=== PATIENT | female | born 1945 | race Caucasian/White ===

== ENCOUNTER 2016-04-08 23:10 | Emergency (ER) | payer MEDICARE, MEDICAID ==
[~2016-04-08] VITALS: Ht 154.9 cm; Wt 71.0 kg
[~2016-04-08 23:10] MED LIST: CEPH500 PO; METF1000 PO; METF500 PO; NOVOLOGP2 SQ; blood pressure med PO
[2016-04-08 23:20] VITALS: BP 147/90; PULSE 110; RESP 18; TEMP 98.3; O2SAT 96
[2016-04-08] MEDS ORDERED: SODIUM CHLOR 0.9% 1000 ML INJ 1,000 ML IV ONE (23:32)
[2016-04-08] MEDS ORDERED: METF500T PO (23:45)
[2016-04-08] MEDS ORDERED: CEPH-460 PO (23:45)
[2016-04-08] MEDS ORDERED: SODIUM CHLORIDE 0.9% FLUSH 5 ML FLUSH IVF PRN (23:45)
[2016-04-08 23:49] LABS: AUTOMATED NEUTROPHIL # 5.2 TH/MM3 (1.8-7.7); BASOPHIL # 0.1 TH/MM3 (0-0.2); BASOPHIL % 1.6 % (0.0-2.0); EOSINOPHIL # 0.1 TH/MM3 (0-0.4); EOSINOPHIL % 1.3 % (0.0-4.0); HEMATOCRIT 46.2 % (35.0-46.0); LYMPH % 32.7 % (9.0-44.0); LYMPHOCYTE # 2.8 TH/MM3 (1.0-4.8); MEAN CELL VOLUME 89.6 FL (80.0-100.0); MEAN CORPUSCULAR HEMOGLOBIN 29.1 PG (27.0-34.0); MEAN CORPUSCULAR HGB CONC 32.5 % (32.0-36.0); MONO % 5.1 % (0.0-8.0); NEUT % 59.3 % (16.0-70.0); PLATELET COUNT 144 TH/MM3 (150-450); RED BLOOD COUNT 5.15 MIL/MM3 (4.00-5.30); RED CELL DISTRIBUTION WIDTH 12.1 % (11.6-17.2); WHITE BLOOD COUNT 8.6 TH/MM3 (4.0-11.0)
[2016-04-08 23:52] LABS: HEMO FLAGS DIFF FINAL
[2016-04-08 23:57] LABS: CHLORIDE 93 MEQ/L (98-107); POTASSIUM 3.9 MEQ/L (3.5-5.1); SODIUM (NA) 131 MEQ/L (136-145)
[2016-04-09] LABS: ANION GAP 12 MEQ/L (5-15); BICARBONATE 25.9 MEQ/L (21.0-32.0)
[2016-04-09] MEDS ORDERED: INSULIN HUMAN REGULAR 1,000 UNITS/10 ML VIAL IV PUSH ONE
[2016-04-09] MEDS ORDERED: SODIUM CHLOR 0.9% 1000 ML INJ 1,000 ML IV ONE (00:02)
[2016-04-09 00:09] LABS: ALKALINE PHOSPHATASE 99 U/L (45-117); ALT (GPT) 86 U/L (10-53); AST (GOT) 40 U/L (15-37); BLOOD UREA NITROGEN 20 MG/DL (7-18); GLOMERULAR FILTRATION RATE 37 ML/MIN (>89); TOTAL BILIRUBIN ADULT 0.4 MG/DL (0.2-1.0)
--- NOTE | 2016-04-09 00:16 | PD ---
HPI Chief Complaint: Dizziness Time Seen by Provider: 23:14 Travel History International Travel<30 days: No Contact w/Intl Traveler<30days: No Traveled to known affect area: No History of Present Illness HPI 70-year-old female arrives to the ER with complaint of resolved blurred vision and a sense of lightheadedness. Patient states her blood glucose at home was 450. The symptoms began after she ate a jar of tidwell pie filling. Pt recently moved to the area and re-established PMD follow up within the past few days. She restarted metformin however had been off of it for several weeks. No falls, LOC, no CP, no weakness, or change in mentation. PFSH Past Medical History Anxiety: Yes Depression: Yes Diabetes: Yes GERD: Yes Hepatitis: Yes (states have A,B,C ?) Hypertension: Yes Respiratory: Yes (hx of asthma) ?: Not Menopausal: Yes Past Surgical History Tonsillectomy: Yes Other Surgery: Yes (states "had a whole in the lung") Social History Alcohol Use: No (states she quit) Tobacco Use: No (states she quit 2 year ago - smoked 1 ppd for 5 yrs) Substance Use: No Allergies-Medications (Allergen,Severity, Reaction): Coded Allergies: No Known Allergies (Unverified , 12/04/14) Reported Meds & Prescriptions Reported Meds & Active Scripts Active Reported Keflex (Cephalexin) 500 Mg Cap 500 Mg PO Q8H Metformin (Metformin HCl) 500 Mg Tab 500 Mg PO TIDPC With meals Review of Systems Except as stated in HPI: all other systems reviewed are Neg Physical Exam Narrative GENERAL: 70-year-old female pleasant no acute distress SKIN: Warm and dry. HEAD: Atraumatic. Normocephalic. EYES: Pupils equal and round. No scleral icterus. No injection or drainage. ENT: No nasal bleeding or discharge. Mucous membranes pink and moist. NECK: Trachea midline. No JVD. CARDIOVASCULAR: Regular rate and rhythm. No murmur appreciated. RESPIRATORY: No accessory muscle use. Clear to auscultation. Breath sounds equal bilaterally. GASTROINTESTINAL: Abdomen soft, non-tender, nondistended. Hepatic and splenic margins not palpable. MUSCULOSKELETAL: No obvious deformities. No clubbing. No cyanosis. No edema. NEUROLOGICAL: Cranial nerves III through XII are normal. Speech memory mentation are normal. Motor function is normal throughout. No focal deficit/ weakness is appreciable. PSYCHIATRIC: Appropriate mood and affect; insight and judgment normal. Data Data Last Documented VS Vital Signs Date Time Temp Pulse Resp B/P Pulse Ox O2 Delivery O2 Flow Rate FiO2 04/09/16 02:31 78 16 105/53 96 Room Air 04/08/16 23:20 98.3 VS reviewed Orders Complete Blood Count With Diff (04/08/16 23:32) Comprehensive Metabolic Panel (04/08/16 23:32) Urinalysis - C+S If Indicated (04/08/16 23:32) Blood Glucose (04/08/16 23:32) Ecg Monitoring (04/08/16 23:32) Iv Access Insert/Monitor (04/08/16 23:32) Oximetry (04/08/16 23:32) NPO (04/08/16 23:32) Sodium Chlor 0.9% 1000 Ml Inj (Ns 1000 M (04/08/16 23:32) Sodium Chlor 0.9% 1000 Ml Inj (Ns 1000 M (04/09/16 00:02) Sodium Chloride 0.9% Flush (Ns Flush) (04/08/16 23:45) Ct Brain W/O Iv Contrast(Rout) (04/08/16 23:32) Insulin Human Regular Inj (Novolin R Inj (04/09/16 00:00) Blood Glucose (04/09/16 00:16) Blood Glucose (04/09/16 01:16) Labs Laboratory Tests Test 04/08/16 04/09/16 23:40 01:25 White Blood Count 8.6 TH/MM3 Red Blood Count 5.15 MIL/MM3 Hemoglobin 15.0 GM/DL Hematocrit 46.2 % Mean Corpuscular Volume 89.6 FL Mean Corpuscular Hemoglobin 29.1 PG Mean Corpuscular Hemoglobin 32.5 % Concent Red Cell Distribution Width 12.1 % Platelet Count 144 TH/MM3 Mean Platelet Volume 9.0 FL Neutrophils (%) (Auto) 59.3 % Lymphocytes (%) (Auto) 32.7 % Monocytes (%) (Auto) 5.1 % Eosinophils (%) (Auto) 1.3 % Basophils (%) (Auto) 1.6 % Neutrophils # (Auto) 5.2 TH/MM3 Lymphocytes # (Auto) 2.8 TH/MM3 Monocytes # (Auto) 0.4 TH/MM3 Eosinophils # (Auto) 0.1 TH/MM3 Basophils # (Auto) 0.1 TH/MM3 CBC Comment DIFF FINAL Differential Comment Sodium Level 131 MEQ/L Potassium Level 3.9 MEQ/L Chloride Level 93 MEQ/L Carbon Dioxide Level 25.9 MEQ/L Anion Gap 12 MEQ/L Blood Urea Nitrogen 20 MG/DL Creatinine 1.40 MG/DL Estimat Glomerular Filtration 37 ML/MIN Rate Random Glucose 465 MG/DL Calcium Level 9.7 MG/DL Total Bilirubin 0.4 MG/DL Aspartate Amino Transf 40 U/L (AST/SGOT) Alanine Aminotransferase 86 U/L (ALT/SGPT) Alkaline Phosphatase 99 U/L Total Protein 8.1 GM/DL Albumin 3.8 GM/DL Urine Color YELLOW Urine Turbidity CLEAR Urine pH 5.5 Urine Specific [place] 1.027 Urine Protein NEG mg/dL Urine Glucose (UA) 1000 OR GREATER mg/dL Urine Ketones TRACE mg/dL Urine Occult Blood NEG Urine Nitrite NEG Urine Bilirubin NEG Urine Leukocyte Esterase NEG Urine RBC 0-2 /hpf Urine WBC 0-2 /hpf Urine Squamous Epithelial 0-5 /hpf Cells Urine Bacteria NONE /hpf Microscopic Urinalysis Comment CULT NOT INDICATED MDM Medical Decision Making Medical Screen Exam Complete: Yes Emergency Medical Condition: Yes Medical Record Reviewed: Yes Differential Diagnosis Hyperglycemia, electrolyte imbalance, DKA, dehydration, arrhythmia, acute intracranial lesion Narrative Course CBC & BMP Diagram 04/08/16 23:40 AST 40 ALT 86 Patient reports feeling much better after IV fluids and insulin. No evidence of metabolic acidosis. Blood glucose improved to 319 after 1.5L and 10 units insulin. Pt agrees to follow up with PMD, Dr Romeo, in the next few days to adjust DM medications. She is ready for discharge. Dietary discretion discussed. Return precautions discussed. Diagnosis Primary Impression: Hyperglycemia Additional Impression: Vision changes Referrals: DR ROMEO 2 days Additional Instructions: You have a choice when it comes to health care, and we are glad that you chose [facility]. Hopefully, we have met your expectations on today's visit. You are welcome to return to [facility] at any time, as we are committed to meeting the health care needs of our community. Med/Other Pt SpecificInfo: Prescription(s) given Disposition: DISCHARGE HOME Condition: Stable Pavan Butt MD Apr 09, 2016 00:16 Pavan Butt MD Apr 09, 2016 00:16
[2016-04-09 00:31] VITALS: BP 127/64; PULSE 78; RESP 16; O2SAT 95
--- NOTE | 2016-04-09 00:33 | RADHPO ---
EXAM DATE/TIME: 04/09/2016 00:03 [facility] COMPARISON: No previous studies available for comparison. INDICATIONS : Dizziness. Numbness in lips and extremities. Blurred vision. RADIATION DOSE: 60.55 CTDIvol (mGy) MEDICAL HISTORY : Diabetes mellitus type 2. Hypertension. SURGICAL HISTORY : None. ENCOUNTER: Initial ACUITY: 1 day PAIN SCALE: 0/10 LOCATION: cranial TECHNIQUE: Multiple contiguous axial images were obtained of the head. Using automated exposure control and adj ustment of the mA and/or kV according to patient size, radiation dose was kept as low as reasonably a chievable to obtain optimal diagnostic quality images. FINDINGS: Noncontrast axial head CT demonstrates the ventricles to be normal in size and configuration with a n ormal sulcal pattern. No acute intracranial hemorrhage, acute cortical infarction, mass or midline sh ift is seen. Posterior fossa structures are unremarkable. Bone windows are unremarkable. There is mucosal disease involving the mastoid air cells bilaterally. CONCLUSION: 1. No evidence of acute intracranial pathology. No masses are identified. 2. 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 This report was verified electronically.
[2016-04-09 01:40] LABS: BLOOD, URINE NEG (NEG); KETONE, URINE TRACE mg/dL (NEG); NITRITE,URINE NEG (NEG); PH, URINE 5.5 (5.0-8.5)
[2016-04-09 01:45] LABS: COMMENT (UR) CULT NOT INDICATED; CULTURE IF INDICATED CULT NOT INDICATED; GLUCOSE,URINE 1000 OR GREATER mg/dL (NEG); RBC, URINE 0-2 /hpf (0-3); SQUAMOUS EPITHELIAL CELL URINE 0-5 /hpf (0-5); URINE COLOR YELLOW (YELLW/STRAW); WBC, URINE 0-2 /hpf (0-5)
[2016-04-09 02:31] VITALS: BP 105/53; PULSE 78; RESP 16; O2SAT 96
== END 2016-04-09 03:20 | disposition home or self-care (01) ==
LOC: PHED 23:10
DX: R73.9 Hyperglycemia, unspecified (principal); I10 Essential (primary) hypertension
CPT/HCPCS: 70450; 80053; 81001; 85025; 96361; 96374; 99285; J1815; J7030

== ENCOUNTER 2016-08-09 02:02 | Emergency (ER) | payer MEDICARE, MEDICAID ==
[~2016-08-09] VITALS: Ht 154.9 cm; Wt 71.0 kg
[~2016-08-09 02:02] MED LIST changes: +CEPH-460 PO; -CEPH500 PO; -METF1000 PO; -METF500 PO; +METF500T PO; -NOVOLOGP2 SQ; -blood pressure med PO
[2016-08-09 02:25] VITALS: BP 155/73; PULSE 94; RESP 18; TEMP 97.8; O2SAT 97
[2016-08-09] MEDS ORDERED: GLIP5TAB8 PO (02:47)
[2016-08-09] MEDS ORDERED: INSU1INJ5 SQ (02:47)
[2016-08-09] MEDS ORDERED: ZOCO40TA PO (02:47)
[2016-08-09] MEDS ORDERED: GEMF600T PO (02:47)
[2016-08-09 03:10] VITALS: BP 162/72; PULSE 91; RESP 18; O2SAT 96
[2016-08-09 03:15] LABS: BLOOD, URINE NEG (NEG); GLUCOSE,URINE 100 mg/dL (NEG); KETONE, URINE NEG (NEG); NITRITE,URINE NEG (NEG); PH, URINE 5.5 (5.0-8.5)
[2016-08-09 03:26] LABS: URINE COLOR STRAW (YELLW/STRAW)
[2016-08-09 03:27] LABS: BACTERIA, URINE MOD /hpf; COMMENT (UR) CULTURE INDICATED; CULTURE IF INDICATED CULTURE INDICATED; SQUAMOUS EPITHELIAL CELL URINE 0-5 /hpf (0-5); WBC, URINE 15-19 /hpf (0-5)
[2016-08-09 03:40] LABS: CHLORIDE 98 MEQ/L (98-107); POTASSIUM 3.8 MEQ/L (3.5-5.1); SODIUM (NA) 135 MEQ/L (136-145)
[2016-08-09 03:43] LABS: ANION GAP 10 MEQ/L (5-15); BICARBONATE 26.9 MEQ/L (21.0-32.0)
[2016-08-09 03:44] LABS: BLOOD UREA NITROGEN 20 MG/DL (7-18)
[2016-08-09 03:46] LABS: ALT (GPT) 109 U/L (10-53); AST (GOT) 58 U/L (15-37)
[2016-08-09 03:47] LABS: GLOMERULAR FILTRATION RATE 56 ML/MIN (>89)
[2016-08-09 03:48] LABS: TOTAL BILIRUBIN ADULT 0.4 MG/DL (0.2-1.0)
[2016-08-09 03:49] LABS: ALKALINE PHOSPHATASE 80 U/L (45-117)
[2016-08-09 03:56] LABS: AUTOMATED NEUTROPHIL # 3.9 TH/MM3 (1.8-7.7); BASOPHIL % 0.3 % (0.0-2.0); EOSINOPHIL # 0.2 TH/MM3 (0-0.4); EOSINOPHIL % 2.3 % (0.0-4.0); HEMATOCRIT 38.9 % (35.0-46.0); LYMPH % 41.8 % (9.0-44.0); LYMPHOCYTE # 3.4 TH/MM3 (1.0-4.8); MEAN CELL VOLUME 89.2 FL (80.0-100.0); MEAN CORPUSCULAR HEMOGLOBIN 30.4 PG (27.0-34.0); MEAN CORPUSCULAR HGB CONC 34.1 % (32.0-36.0); MONO % 7.5 % (0.0-8.0); NEUT % 48.1 % (16.0-70.0); PLATELET COUNT 137 TH/MM3 (150-450); RED BLOOD COUNT 4.36 MIL/MM3 (4.00-5.30); RED CELL DISTRIBUTION WIDTH 12.2 % (11.6-17.2); WHITE BLOOD COUNT 8.1 TH/MM3 (4.0-11.0)
[2016-08-09 03:58] LABS: HEMO FLAGS DIFF FINAL
[2016-08-09] MEDS ORDERED: MACR100C2 PO (04:20)
--- NOTE | 2016-08-09 04:22 | PD ---
HPI Chief Complaint: Numbness/Tingling Time Seen by Provider: 02:53 Travel History International Travel<30 days: No Contact w/Intl Traveler<30days: No Traveled to known affect area: No History of Present Illness HPI The patient is a 70-year-old female that complains of numbness, tingling to both of her arms or legs and lips bilaterally. She is been under a lot of stress at home. She states she gets short of breath when she gets under stress. She also has dysuria, frequency and urgency but no nausea, vomiting or diarrhea or flank pain. She denies any focal neurologic change. He denies any headache. PFSH Past Medical History Anxiety: Yes Depression: Yes Diabetes: Yes Patient Takes Glucophage: Yes GERD: Yes Hepatitis: Yes (states have A,B,C ?) Hypertension: Yes Respiratory: Yes (hx of asthma) Tetanus Vaccination: < 5 Years Influenza Vaccination: No ?: Not Menopausal: Yes Past Surgical History Tonsillectomy: Yes Other Surgery: Yes (states "had a whole in the lung") Social History Alcohol Use: No (states she quit) Tobacco Use: No (states she quit 2 year ago - smoked 1 ppd for 5 yrs) Substance Use: No Allergies-Medications (Allergen,Severity, Reaction): Coded Allergies: No Known Allergies (Unverified , 08/09/16) Reported Meds & Prescriptions Reported Meds & Active Scripts Active Reported Glipizide 5 Mg Tab 2.5 Mg PO BIDAC Take 30 minutes before a meal Zocor (Simvastatin) 40 Mg Tab 40 Mg PO DAILY Gemfibrozil 600 Mg Tab 600 Mg PO BIDAC Take 30 minutes prior to breakfast and dinner. Levemir Flextouch Pen Inj (Insulin Detemir) 300 unit/3 ML Pen 25 Units SQ BID Metformin (Metformin HCl) 500 Mg Tab 500 Mg PO TIDPC With meals Review of Systems Except as stated in HPI: all other systems reviewed are Neg Physical Exam Narrative GENERAL: The patient is alert, oriented 3, extremely anxious and hyperventilating when I first encountered her. The vital signs show blood pressure 155/73 with respirations 18, and I saw the patient respirations were 22. Oximetry 1 I saw her was 98-99%. SKIN: Focused skin assessment warm/dry. HEAD: Atraumatic. Normocephalic. EYES: Pupils equal and round. No scleral icterus. No injection or drainage. ENT: No nasal bleeding or discharge. Mucous membranes pink and moist. NECK: Trachea midline. No JVD. CARDIOVASCULAR: Regular rate and rhythm. No murmur appreciated. RESPIRATORY: No accessory muscle use. Clear to auscultation. Breath sounds equal bilaterally. GASTROINTESTINAL: Abdomen soft, with discomfort doing feeling over the suprapubic area creating the urge to urinate when I palpate on this area, nondistended. Hepatic and splenic margins not palpable. No flank tenderness is present. MUSCULOSKELETAL: No obvious deformities. No clubbing. No cyanosis. No edema. NEUROLOGICAL: Awake and alert. No obvious cranial nerve deficits. Motor grossly within normal limits. Normal speech. PSYCHIATRIC: Appropriate mood and affect; insight and judgment normal. Data Data Last Documented VS Vital Signs Date Time Temp Pulse Resp B/P Pulse Ox O2 Delivery O2 Flow Rate FiO2 08/09/16 03:10 91 18 162/72 96 Room Air 08/09/16 02:25 97.8 Orders Complete Blood Count With Diff (08/09/16 02:53) Comprehensive Metabolic Panel (08/09/16 02:53) Urinalysis - C+S If Indicated (08/09/16 02:53) Urine Culture (08/09/16 03:00) Labs Laboratory Tests Test 08/09/16 08/09/16 02:20 03:00 White Blood Count 8.1 TH/MM3 Red Blood Count 4.36 MIL/MM3 Hemoglobin 13.2 GM/DL Hematocrit 38.9 % Mean Corpuscular Volume 89.2 FL Mean Corpuscular Hemoglobin 30.4 PG Mean Corpuscular Hemoglobin 34.1 % Concent Red Cell Distribution Width 12.2 % Platelet Count 137 TH/MM3 Mean Platelet Volume 10.4 FL Neutrophils (%) (Auto) 48.1 % Lymphocytes (%) (Auto) 41.8 % Monocytes (%) (Auto) 7.5 % Eosinophils (%) (Auto) 2.3 % Basophils (%) (Auto) 0.3 % Neutrophils # (Auto) 3.9 TH/MM3 Lymphocytes # (Auto) 3.4 TH/MM3 Monocytes # (Auto) 0.6 TH/MM3 Eosinophils # (Auto) 0.2 TH/MM3 Basophils # (Auto) 0.0 TH/MM3 CBC Comment DIFF FINAL Differential Comment Sodium Level 135 MEQ/L Potassium Level 3.8 MEQ/L Chloride Level 98 MEQ/L Carbon Dioxide Level 26.9 MEQ/L Anion Gap 10 MEQ/L Blood Urea Nitrogen 20 MG/DL Creatinine 0.98 MG/DL Estimat Glomerular Filtration 56 ML/MIN Rate Random Glucose 275 MG/DL Calcium Level 8.9 MG/DL Total Bilirubin 0.4 MG/DL Aspartate Amino Transf 58 U/L (AST/SGOT) Alanine Aminotransferase 109 U/L (ALT/SGPT) Alkaline Phosphatase 80 U/L Total Protein 7.7 GM/DL Albumin 3.9 GM/DL Urine Color STRAW Urine Turbidity SLIGHT Urine pH 5.5 Urine Specific [place] 1.005 Urine Protein NEG mg/dL Urine Glucose (UA) 100 mg/dL Urine Ketones NEG mg/dL Urine Occult Blood NEG Urine Nitrite NEG Urine Bilirubin NEG Urine Leukocyte Esterase MOD Urine WBC 15-19 /hpf Urine WBC Clumps OCC Urine Squamous Epithelial 0-5 /hpf Cells Urine Bacteria MOD /hpf Microscopic Urinalysis Comment CULTURE INDICATED MDM Medical Decision Making Medical Screen Exam Complete: Yes Emergency Medical Condition: Yes Medical Record Reviewed: Yes Interpretation(s) The urine shows slight turbidity with 100 glucose and moderate leukocyte Estrace and 15-19 white cells with occasional white cell clumping's and moderate bacteria and culture is indicated. The CBC is normal. The complete metabolic profile shows a sodium of 135, BUN 20, glucose of 275 but is otherwise unremarkable. Differential Diagnosis Hypo-/hyperglycemia, renal insufficiency, electrolyte disorder, urinary tract infection, anemia, anxiety/hyperventilation Narrative Course The patient has anxiety hyperventilation along with a cystitis. Plan: The patient be given Macrobid and increase liquids and follow-up with her primary care physician. Diagnosis Primary Impression: Anxiety hyperventilation Additional Impression: Cystitis Med/Other Pt SpecificInfo: Prescription(s) given Scripts Nitrofurantoin Monohydrate Macrocrystals (Macrobid)100 Mg [id number] Mg PO BID 10 Days Ref 0 Prov:Mike Mast MD 08/09/16 Disposition: 01 DISCHARGE HOME Condition: Stable Mike Mast MD August 09, 2016 04:22
[2016-08-09 04:29] VITALS: BP 131/66
[2016-08-09] MEDS ORDERED: NITROFURANTOIN MONOHYD MACROCR 100 MG CAP PO ONE (04:30)
== END 2016-08-09 04:41 | disposition home or self-care (01) ==
LOC: PHED 02:02
DX: F41.9 Anxiety disorder, unspecified (principal); R06.4 Hyperventilation; N30.90 Cystitis, unspecified without hematuria; F32.9 Major depressive disorder, single episode, unspecified; E11.9 Type 2 diabetes mellitus without complications; K21.9 Gastro-esophageal reflux disease without esophagitis; K75.9 Inflammatory liver disease, unspecified; I10 Essential (primary) hypertension; J45.909 Unspecified asthma, uncomplicated
CPT/HCPCS: 80053; 81001; 85025; 87077; 87086; 87186; 99283

== ENCOUNTER 2016-12-01 17:53 | Emergency (ER) | payer MEDICARE, MEDICAID ==
[~2016-12-01] VITALS: Ht 154.9 cm; Wt 73.0 kg
[~2016-12-01 17:53] MED LIST changes: -CEPH-460 PO; +GEMF600T PO; +GLIP5TAB8 PO; +INSU1INJ5 SQ; +MACR100C2 PO; +ZOCO40TA PO
[2016-12-01 17:56] VITALS: BP 157/67; PULSE 94; RESP 19; TEMP 97.5; O2SAT 98
[2016-12-01] MEDS ORDERED: LEVEMIR SQ (18:10)
[2016-12-01] MEDS ORDERED: GABA100C4 PO (18:10)
--- NOTE | 2016-12-01 18:20 | PD ---
HPI Chief Complaint: Musculoskeletal Complaint Time Seen by Provider: 18:19 Travel History International Travel<30 days: No Contact w/Intl Traveler<30days: No Traveled to known affect area: No History of Present Illness HPI 70 YO F with PMH of DM presents to the ED for evaluation of 3/10 pain in the anterior aspect of the LEFT ankle. Patient denies known injury. She states that the pain started a few days ago seems worse with ambulation. She endorses history of diabetic neuropathy and takes gabapentin but states this pain is different. She denies weakness of the extremity, foot drop, giving way or recent overuse. No treatment attempted at home. PFSH Past Medical History Anxiety: Yes Depression: Yes Diabetes: Yes Patient Takes Glucophage: Yes Diminished Hearing: No GERD: Yes Hepatitis: Yes (states have A,B,C ?) Hypertension: Yes Respiratory: Yes (hx of asthma) Influenza Vaccination: No ?: Not Menopausal: Yes Past Surgical History Tonsillectomy: Yes Other Surgery: Yes (states "had a whole in the lung") Social History Alcohol Use: No (states she quit) Tobacco Use: No (states she quit 2 year ago - smoked 1 ppd for 5 yrs) Substance Use: No Allergies-Medications (Allergen,Severity, Reaction): Coded Allergies: No Known Allergies (Unverified , 12/01/16) Reported Meds & Prescriptions Reported Meds & Active Scripts Active Naprosyn (Naproxen) 500 Mg Tab 500 Mg PO BID Reported Levemir Inj (Insulin Detemir) 1,000 unit/ 10 ML Vial 30 Units SQ BID Do not mix with any other Insulin. Gabapentin 100 Mg Cap 0 PO BID Glipizide 5 Mg Tab 2.5 Mg PO BIDAC Take 30 minutes before a meal Metformin (Metformin HCl) 500 Mg Tab 500 Mg PO TIDPC With meals Review of Systems Except as stated in HPI: all other systems reviewed are Neg Physical Exam Narrative GENERAL: Well-nourished, well-developed pleasant white female in no acute distress. SKIN: Focused skin assessment warm/dry. HEAD: Normocephalic. EYES: No scleral icterus. No injection or drainage. NECK: Supple, trachea midline. No JVD or lymphadenopathy. CARDIOVASCULAR: Regular rate and rhythm without murmurs, gallops, or rubs. RESPIRATORY: Breath sounds equal bilaterally. No accessory muscle use. GASTROINTESTINAL: Abdomen soft, non-tender, nondistended. MUSCULOSKELETAL: No cyanosis, or edema. FOCUSED LEFT LOWER EXTREMITY EXAM: 2+ DP pulse. Patient retains full, active, painless ROM of the ankle and toes. Tender to palpation over the talotibial joint. No tenderness to palpation over the malleolus, navicular or base of the fifth. Neurovascularly intact. BACK: Nontender without obvious deformity. No CVA tenderness. Data Data Last Documented VS Vital Signs Date Time Temp Pulse Resp B/P (MAP) Pulse Ox O2 Delivery O2 Flow Rate FiO2 12/01/16 17:56 97.5 94 19 157/67 (97) 98 Orders Orders Ankle, Complete ([id number]) (12/01/16 18:09) Ice/Cold Pack (12/01/16 18:09) MDM Medical Decision Making Medical Screen Exam Complete: Yes Emergency Medical Condition: Yes Differential Diagnosis OA versus sprain versus strain versus musculoskeletal pain versus diabetic neuropathy versus other other Narrative Course 70 YO F with PMH of DM presents to the ED for evaluation of 3/10 pain in the anterior aspect of the LEFT ankle. Patient denies known injury. She states that the pain started a few days ago seems worse with ambulation. She endorses history of diabetic neuropathy and takes gabapentin but states this pain is different. She denies weakness of the extremity, foot drop, giving way or recent overuse. Vitals reviewed. Physical exam reveals TTP of the anterior aspect of the talotibial joint but is otherwise unremarkable. X-ray reveals distant fracture with hardware in place. This confirms my suspicion of OA. Those results the x-ray with the patient. Rapid ankle with an Pranav wrap. Patient was prescribed a short course of anti-inflammatories and instructed to return to normal, gentle activities as tolerated. I educated her on supportive care. She indicated understanding of the instructions and is agreeable to the care plan. She is stable and discharged home. Diagnosis Primary Impression: Osteoarthritis of left ankle Qualified Codes: M19.272 - Secondary osteoarthritis, left ankle and foot Referrals: Orthopedist Patient Instructions: General Instructions, Osteoarthritis (ED) Additional Instructions: Rest, ice, elevate the extremity. 500 mg Naprosyn twice a day as needed for pain and swelling. Return to normal, gentle activity as tolerated. No running, jumping activities for the next few weeks. Follow up with orthopedist or your primary care provider. Return to the ED for any urgent or emergent medical condition. Med/Other Pt SpecificInfo: Prescription(s) given Scripts Naproxen (Naprosyn) 500 Mg Tab 500 MG PO BID, #10 TAB 0 Refills Prov: Donnie Huang MD 12/01/16 Disposition: 01 DISCHARGE HOME Condition: Stable Lauren Bonilla Dec 01, 2016 18:20
--- NOTE | 2016-12-01 18:41 | RADRPT ---
EXAM DATE/TIME: 12/01/2016 18:21 [facility] COMPARISON: No previous studies available for comparison. INDICATIONS : Left ankle pain for 3 days with no known trauma MEDICAL HISTORY : Left distal fibula fracture SURGICAL HISTORY : ORIF left distal fibula ENCOUNTER: Initial ACUITY: 3 days PAIN SCORE: 5/10 LOCATION: Left entire ankle FINDINGS: Plain screw fixation distal fibula. No acute fracture identified. There is some soft tissue swelling at the ankle. CONCLUSION: 1. Soft tissue swelling at the ankle with remote fractures of the distal tibia and fibula. Previous p late fixation distal fibula. No acute fractures seen. Esa Tejeda MD on December 01, 2016 at 18:38 Board Certified Radiologist. This report was verified electronically.
[2016-12-01] MEDS ORDERED: NAPR500 PO (19:03)
== END 2016-12-01 19:10 | disposition home or self-care (01) ==
LOC: PHEFT 17:53
DX: M19.072 Primary osteoarthritis, left ankle and foot (principal); E11.40 Type 2 diabetes mellitus with diabetic neuropathy, unspecified; Z79.84 Long term (current) use of oral hypoglycemic drugs
CPT/HCPCS: 73610; 99283

== ENCOUNTER 2016-12-28 13:23 | Emergency (ER) | payer MEDICARE, MEDICAID ==
[~2016-12-28 13:23] MED LIST changes: +GABA100C4 PO; -GEMF600T PO; -INSU1INJ5 SQ; +LEVEMIR SQ; -MACR100C2 PO; +NAPR500 PO; -ZOCO40TA PO
[2016-12-28 13:28] VITALS: BP 146/60; PULSE 104; RESP 20; TEMP 98; O2SAT 95
[2016-12-28] MEDS ORDERED: ACETAMINOPHEN 325 MG TAB PO ONE (14:00)
[2016-12-28] MEDS ORDERED: ONDANSETRON ODT 4 MG TAB PO ONE (14:00)
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
--- NOTE | 2016-12-28 15:09 | RADRPT ---
EXAM DATE/TIME: 12/28/2016 14:42 [facility] COMPARISON: No previous studies available for comparison. INDICATIONS : Fell off of three donovan. Dizziness. Left orbital hematoma and blurred vision. RADIATION DOSE: 34.38 CTDIvol (mGy) MEDICAL HISTORY : Hypertension. SURGICAL HISTORY : Tonsillectomy. ENCOUNTER: Initial ACUITY: 1 day PAIN SCORE: 5/10 LOCATION: Left facial eye TECHNIQUE: Volumetric scanning of the facial bones was performed. Using automated exposure control and adjustme nt of the mA and/or kV according to patient size, radiation dose was kept as low as reasonably achiev able to obtain optimal diagnostic quality images. DICOM format image data is available electronicall y for review and comparison. FINDINGS: ORBITS: The orbital and infraorbital osseous structures are intact. The retroconal structures have a normal configuration. No radiopaque foreign bodies are seen. NASAL BONE: The nasal bone and maxillary spine are intact ZYGOMATIC ARCHES: Symmetric without evidence of fracture. SINUSES: The maxillary, ethmoid and frontal sinuses are intact. No air-fluid levels seen. NASAL CAVITY: The nasal septum is intact and midline. The lacrimal ducts are intact. SOFT TISSUES: No radiopaque foreign bodies seen. Soft tissue swelling is present in the left frontal region. There is mucosal disease in the mastoid air cells bilaterally INTRACRANIAL: No intracranial air seen. CRIBIFORM PLATE: Grossly intact. CONCLUSION: 1. There is no evidence of acute fracture. Po Velasquez MD on December 28, 2016 at 15:06 Board Certified Radiologist. This report was verified electronically.
--- NOTE | 2016-12-28 15:11 | RADRPT ---
EXAM DATE/TIME: 12/28/2016 14:42 [facility] COMPARISON: CT BRAIN W/O CONTRAST, April 09, 2016, 0:03. INDICATIONS : Fell off of three donovan. Dizziness. Left orbital hematoma and blurred vision. RADIATION DOSE: 53.54 CTDIvol (mGy) MEDICAL HISTORY : Hypertension. SURGICAL HISTORY : Tonsillectomy. ENCOUNTER: Initial ACUITY: 1 day PAIN SCALE: 5/10 LOCATION: Left cranial TECHNIQUE: Multiple contiguous axial images were obtained of the head. Using automated exposure control and adj ustment of the mA and/or kV according to patient size, radiation dose was kept as low as reasonably a chievable to obtain optimal diagnostic quality images. DICOM format image data is available electro nically for review and comparison. FINDINGS: CEREBRUM: The ventricles are normal for age. No evidence of midline shift, mass lesion, hemorrhage or acute in farction. No extra-axial fluid collections are seen. POSTERIOR FOSSA: The cerebellum and brainstem are intact. The 4th ventricle is midline. The cerebellopontine angle i s unremarkable. EXTRACRANIAL: The visualized portion of the orbits is intact. Moderate-sized left scalp periorbital hematoma. SKULL: The calvaria is intact. No evidence of skull fracture. CONCLUSION: 1. Moderate-sized left scalp periorbital hematoma. Left globe is grossly intact by CT. 2. No acute intracranial abnormality. Reyes Francisco MD on December 28, 2016 at 15:00 Board Certified Radiologist. This report was verified electronically.
== END 2016-12-28 15:36 | disposition home or self-care (01) ==
LOC: PHEFT 13:23
DX: S09.90XA Unspecified injury of head, initial encounter (principal); S00.10XA Contusion of unspecified eyelid and periocular area, initial encounter; E11.9 Type 2 diabetes mellitus without complications; I10 Essential (primary) hypertension; V19.3XXA Pedal cyclist (driver) (passenger) injured in unspecified nontraffic accident, initial encounter; Y93.55 Activity, bike riding
CPT/HCPCS: 70450; 70486

== ENCOUNTER 2017-02-19 13:53 | Emergency (ER) | payer MEDICARE, MEDICAID ==
[~2017-02-19] VITALS: Ht 154.9 cm; Wt 70.5 kg
[~2017-02-19 13:53] MED LIST changes: -METF500T PO; -NAPR500 PO
[2017-02-19 14:00] VITALS: BP 148/67; PULSE 97; RESP 16; TEMP 98.4; O2SAT 96
--- NOTE | 2017-02-19 15:31 | RADRPT ---
EXAM DATE/TIME: 02/19/2017 15:13 [facility] COMPARISON: ANKLE LEFT COMPLETE ([id number]), December 01, 2016, 18:21. INDICATIONS : Fall. Left foot pain lateral side. MEDICAL HISTORY : None. SURGICAL HISTORY : None. ENCOUNTER: Initial ACUITY: 1 day PAIN SCORE: 7/10 LOCATION: Left lateral FINDINGS: Three view examination of the left foot demonstrates no soft tissue swelling, dislocation, or fractur e. The tarsal bones appear intact. The interphalangeal and metatarsophalangeal joints are intact. The calcaneus is intact. Small hydrone retrocalcaneal spurs. Bony mineralization is normal. Later al fibular plate in place. CONCLUSION: No evidence of recent bone injury. Andrés Duron MD on February 19, 2017 at 15:29 Board Certified Radiologist. This report was verified electronically.
--- NOTE | 2017-02-19 15:56 | PD ---
HPI Chief Complaint: Injury Time Seen by Provider: 14:17 Travel History International Travel<30 days: No Contact w/Intl Traveler<30days: No Traveled to known affect area: No History of Present Illness HPI 71 year old female with left foot pain after twisting injury. She is pain and midfoot. She reports normal sensation and full range of motion of the toes. Symptom severity is mild. No alleviating factors. PFSH Past Medical History Anxiety: Yes Depression: Yes Cardiovascular Problems: Yes (htn on meds) Diabetes: Yes (type 2) Patient Takes Glucophage: No Diminished Hearing: No GERD: Yes Hepatitis: Yes (states have A,B,C ?) Hypertension: Yes Respiratory: Yes (hx of asthma) Immunizations Current: Yes ?: Not Menopausal: Yes Past Surgical History Tonsillectomy: Yes Other Surgery: Yes (states "had a whole in the lung") Social History Alcohol Use: No (states she quit) Tobacco Use: No (FORMER) Substance Use: No Allergies-Medications (Allergen,Severity, Reaction): Coded Allergies: No Known Allergies (Unverified Adverse Reaction, Unknown, 02/19/17) Reported Meds & Prescriptions Reported Meds & Active Scripts Active Reported Levemir Inj (Insulin Detemir) 1,000 unit/ 10 ML Vial 30 Units SQ BID Do not mix with any other Insulin. Gabapentin 100 Mg Cap 0 PO BID Glipizide 5 Mg Tab 2.5 Mg PO BIDAC Take 30 minutes before a meal Review of Systems Except as stated in HPI: all other systems reviewed are Neg Physical Exam Narrative GENERAL: Well-nourished, well-developed patient. SKIN: Focused skin assessment warm/dry. HEAD: Normocephalic. EYES: No scleral icterus. No injection or drainage. NECK: Supple, trachea midline. No JVD or lymphadenopathy. MUSCULOSKELETAL: No cyanosis. Attention to the left lower extremity: Tenderness over the dorsal aspect of the foot. No swelling. No deformity. Normal sensation. 2+ dorsal pedis pulse. Brisk cap refill. Data Data Last Documented VS Vital Signs Date Time Temp Pulse Resp B/P (MAP) Pulse Ox O2 Delivery O2 Flow Rate FiO2 02/19/17 14:00 98.4 97 16 148/67 (94) 96 Orders Orders Foot, Complete ([id number]) (02/19/17 ) Ed Discharge Order (02/19/17 15:53) Splint Or Brace Apply/Monitor (02/19/17 15:56) [facility] Medical Decision Making Medical Screen Exam Complete: Yes Emergency Medical Condition: Yes Differential Diagnosis foot fx, sprain, contusion Narrative Course 71 year old female with left foot pain after twisting injury. Extremity is neurovascular intact. No deformity. X-ray negative for fracture be treated for midfoot sprain Diagnosis Primary Impression: Foot sprain Qualified Codes: S93.602A - Unspecified sprain of left foot, initial encounter Referrals: Primary Care Physician Additional Instructions: Ice and elevate the extremity. [id number] Tylenol or Motrin as needed for pain. Disposition: 01 DISCHARGE HOME Condition: Stable Sandra Orozco Feb 19, 2017 15:56
== END 2017-02-19 16:15 | disposition home or self-care (01) ==
LOC: PHED 13:53 → PHEFT 16:15
DX: S93.602A Unspecified sprain of left foot, initial encounter (principal); I10 Essential (primary) hypertension; E11.9 Type 2 diabetes mellitus without complications; Z79.4 Long term (current) use of insulin
CPT/HCPCS: 73630; 99283

== ENCOUNTER 2017-06-24 07:53 | Inpatient (IN) | payer MEDICARE, MEDICAID ==
[2017-06-24] VITALS (12 sets, daily range): BP systolic 121–162; BP diastolic 56–84; PULSE 22–77; RESP 16–20; TEMP 97.3–98; O2SAT 96–98
[~2017-06-24] VITALS: Ht 154.9 cm; Wt 71.3 kg
[2017-06-24 08:21] LABS: AUTOMATED NEUTROPHIL # 4.7 TH/MM3 (1.8-7.7); BASOPHIL # 0.1 TH/MM3 (0-0.2); EOSINOPHIL # 0.2 TH/MM3 (0-0.4); EOSINOPHIL % 3.5 % (0.0-4.0); HEMATOCRIT 38.1 % (35.0-46.0); HEMOGLOBIN 12.8 GM/DL (11.6-15.3); LYMPHOCYTE # 1.4 TH/MM3 (1.0-4.8); MEAN CELL VOLUME 89.8 FL (80.0-100.0); MEAN CORPUSCULAR HEMOGLOBIN 30.1 PG (27.0-34.0); MEAN CORPUSCULAR HGB CONC 33.5 % (32.0-36.0); MEAN PLATELET VOLUME 8.9 FL (7.0-11.0); MONO % 5.6 % (0.0-8.0); MONOCYTE # 0.4 TH/MM3 (0-0.9); NEUT % 69.9 % (16.0-70.0); PLATELET COUNT 171 TH/MM3 (150-450); RED BLOOD COUNT 4.24 MIL/MM3 (4.00-5.30); RED CELL DISTRIBUTION WIDTH 14.2 % (11.6-17.2); WHITE BLOOD COUNT 6.8 TH/MM3 (4.0-11.0)
--- NOTE | 2017-06-24 08:25 | RADRPT ---
EXAM DATE/TIME: 06/24/2017 08:06 [facility] COMPARISON: No previous studies available for comparison. INDICATIONS : Chest pain. MEDICAL HISTORY : Hypertension. Diabetes mellitus type II. SURGICAL HISTORY : None. ENCOUNTER: Initial ACUITY: 1 day PAIN SCORE: 5/10 LOCATION: Bilateral chest FINDINGS: There is diffuse fine interstitial prominence and patchy reticulonodular density which is of undeterm ined chronicity. No evidence of alveolar consolidation or significant effusion. Cardiac contours are satisfactory. CONCLUSION: Diffuse mild interstitial process of undetermined chronicity yDlan Alcala MD on June 24, 2017 at 8:22 Board Certified Radiologist. This report was verified electronically.
[2017-06-24 08:29] LABS: CHLORIDE 107 MEQ/L (98-107); SODIUM (NA) 140 MEQ/L (136-145)
[2017-06-24 08:32] LABS: BICARBONATE 26.9 MEQ/L (21.0-32.0); CALCIUM 8.9 MG/DL (8.5-10.1); GLUCOSE,RANDOM 66 MG/DL (74-106)
[2017-06-24 08:33] LABS: BLOOD UREA NITROGEN 19 MG/DL (7-18)
[2017-06-24 08:36] LABS: GLOMERULAR FILTRATION RATE 44 ML/MIN (>89)
[2017-06-24 08:40] LABS: TROPONIN I LESS THAN 0.02 NG/ML (0.02-0.05)
--- NOTE | 2017-06-24 08:51 | PD ---
HPI Chief Complaint: Chest Pain Time Seen by Provider: 08:38 Travel History International Travel<30 days: No Contact w/Intl Traveler<30days: No Traveled to known affect area: No History of Present Illness HPI This patient complains of chest pressure. Started yesterday when she was doing some outdoor work in her carport. She is currently chest pain-free. She describes it as a central sternal pressure. She denies any history of coronary artery disease. She does not think she is ever had a stress test. She is diabetic on oral medications and quit smoking 10 years ago. Symptom severity was moderate but has improved. Duration 16 hours. No alleviating factors. No exacerbating factors. She is not sure if the pain was exertional. PFSH Past Medical History Anxiety: Yes Depression: Yes Cardiovascular Problems: Yes (htn on meds) Diabetes: Yes Patient Takes Glucophage: Yes Diminished Hearing: No GERD: Yes Hepatitis: Yes (states have A,B,C ?) Hypertension: Yes Respiratory: Yes (hx of asthma) Immunizations Current: Yes Influenza Vaccination: Yes Menopausal: Yes Past Surgical History Tonsillectomy: Yes Other Surgery: Yes (states "had a whole in the lung") Social History Alcohol Use: No (states she quit) Tobacco Use: No (FORMER) Substance Use: No Allergies-Medications (Allergen,Severity, Reaction): Coded Allergies: No Known Allergies (Unverified Adverse Reaction, Unknown, 02/19/17) Reported Meds & Prescriptions Reported Meds & Active Scripts Active Reported Levemir Inj (Insulin Detemir) 1,000 unit/ 10 ML Vial 30 Units SQ BID Do not mix with any other Insulin. Gabapentin 100 Mg Cap 0 PO BID Glipizide 5 Mg Tab 2.5 Mg PO BIDAC Take 30 minutes before a meal Review of Systems General / Constitutional: No: Fever Eyes: No: Visual changes HENT: No: Headaches Cardiovascular: Positive: Chest Pain or Discomfort Respiratory: No: Shortness of Breath Gastrointestinal: No: Abdominal Pain Genitourinary: No: Dysuria Musculoskeletal: No: Pain Skin: No Rash Neurologic: No: Weakness Psychiatric: No: Depression Endocrine: No: Polydipsia Hematologic/Lymphatic: No: Easy Bruising Physical Exam Narrative GENERAL: Well-nourished, well-developed patient in no apparent distress. SKIN: Focused skin assessment reveals no rash and nodules. Skin is Warm and dry. HEAD: Atraumatic. Normocephalic. EYES: Pupils equal and round. No scleral icterus. No injection or drainage. ENT: No nasal bleeding or discharge. Mucous membranes pink and moist. NECK: Trachea midline. No JVD. CARDIOVASCULAR: Regular rate and rhythm. No murmur appreciated. RESPIRATORY: No accessory muscle use. Clear to auscultation. Breath sounds equal bilaterally. GASTROINTESTINAL: Abdomen soft, non-tender, nondistended. Hepatic and splenic margins not palpable. MUSCULOSKELETAL: No obvious deformities. No clubbing. No cyanosis. No edema. NEUROLOGICAL: Awake and alert. No obvious cranial nerve deficits. Motor grossly within normal limits. Normal speech. PSYCHIATRIC: Appropriate mood and affect; insight and judgment normal. Data Data Last Documented VS Vital Signs Date Time Temp Pulse Resp B/P (MAP) Pulse Ox O2 Delivery O2 Flow Rate FiO2 06/24/17 09:05 16 Room Air 06/24/17 09:05 66 121/59 (79) 98 06/24/17 07:55 97.9 Orders Orders Electrocardiogram (06/24/17 08:03) Complete Blood Count With Diff (06/24/17 08:03) Basic Metabolic Panel (Bmp) (06/24/17 08:03) Ckmb (Isoenzyme) Profile (06/24/17 08:03) Troponin I (06/24/17 08:03) Chest, Single Ap (06/24/17 08:03) Iv Access Insert/Monitor (06/24/17 08:03) Ecg Monitoring (06/24/17 08:03) Oxygen Administration (06/24/17 08:03) Oximetry (06/24/17 08:03) Aspirin (Aspirin) (06/24/17 09:00) Labs Laboratory Tests Test 06/24/17 08:00 White Blood Count 6.8 TH/MM3 Red Blood Count 4.24 MIL/MM3 Hemoglobin 12.8 GM/DL Hematocrit 38.1 % Mean Corpuscular Volume 89.8 FL Mean Corpuscular Hemoglobin 30.1 PG Mean Corpuscular Hemoglobin Concent 33.5 % Red Cell Distribution Width 14.2 % Platelet Count 171 TH/MM3 Mean Platelet Volume 8.9 FL Neutrophils (%) (Auto) 69.9 % Lymphocytes (%) (Auto) 20.0 % Monocytes (%) (Auto) 5.6 % Eosinophils (%) (Auto) 3.5 % Basophils (%) (Auto) 1.0 % Neutrophils # (Auto) 4.7 TH/MM3 Lymphocytes # (Auto) 1.4 TH/MM3 Monocytes # (Auto) 0.4 TH/MM3 Eosinophils # (Auto) 0.2 TH/MM3 Basophils # (Auto) 0.1 TH/MM3 CBC Comment DIFF FINAL Differential Comment Blood Urea Nitrogen 19 MG/DL Creatinine 1.20 MG/DL Random Glucose 66 MG/DL Calcium Level 8.9 MG/DL Sodium Level 140 MEQ/L Potassium Level 3.6 MEQ/L Chloride Level 107 MEQ/L Carbon Dioxide Level 26.9 MEQ/L Anion Gap 6 MEQ/L Estimat Glomerular Filtration Rate 44 ML/MIN Total Creatine Kinase 97 U/L Troponin I LESS THAN 0.02 NG/ML MDM Medical Decision Making Medical Screen Exam Complete: Yes Emergency Medical Condition: Yes Medical Record Reviewed: Yes Differential Diagnosis Differential diagnosis includes [place], angina, pericarditis, pleurisy, GERD, anxiety. Narrative Course I have reviewed the patient's electronic medical record. She has not been here before for chest pain but several other issues I reviewed her EKG which shows sinus rhythm with no ST elevation Extended cardiac monitoring reveals sinus rhythm without ectopy I gave her an aspirin Reviewed her chest x-ray which shows an interstitial process of undetermined chronicity Lab studies have been sent General blood counts and cardiac enzymes are normal Metabolic studies are normal Patient has multiple risk factors for CAD including diabetes and ex-smoker She will be a 23 hour observation on telemetry in the chest pain center to rule out cardiac cause of her symptoms I have paged the hospitalist to discuss Diagnosis Primary Impression: Chest pain Qualified Codes: R07.9 - Chest pain, unspecified Additional Impressions: Diabetes mellitus Qualified Codes: E11.9 - Type 2 diabetes mellitus without complications Ex-smoker for more than 1 year Admitting Information Admitting Physician Requests: Observation Derrick Liao MD Jun 24, 2017 08:51
[2017-06-24] MEDS ORDERED: ASPIRIN 325 MG TAB PO ONE (09:00)
[2017-06-24] MEDS ORDERED: GLUCAGON 1 MG/ML VIAL OTHER PRN (10:45)
[2017-06-24] MEDS ORDERED: NITROGLYCERIN 0.4 MG SL 25 TABS/BTL SL PRN (10:45)
[2017-06-24] MEDS ORDERED: SODIUM CHLORIDE 0.9% FLUSH 10 ML FLUSH IV FLUSH PRN (10:45)
[2017-06-24] MEDS ORDERED: DEXTROSE 50% IN WATER 50 ML VIAL(D50) IV PUSH PRN (10:45)
[2017-06-24] MEDS ORDERED: ACETAMINOPHEN 500 MG CPLT PO PRN (11:00)
[2017-06-24] MEDS ORDERED: NS + KCL 20 MEQ INJ 1,000 ML IV SCH (11:00)
[2017-06-24] MEDS ORDERED: ONDANSETRON HCL 4 MG/2 ML VIAL IV PUSH PRN (11:00)
[2017-06-24 11:27] LABS: TROPONIN I LESS THAN 0.02 NG/ML (0.02-0.05)
--- NOTE | 2017-06-24 11:40 | EKG ---
Date Performed: 06/24/2017 Time Performed: 07:59:51 PTAGE: 71 years EKG: Sinus rhythm BORDERLINE LEFT AXIS DEVIATION BORDERLINE ECG PREVIOUS TRACING : 12/04/2014 18.20 Since the previous tracing, no significant change noted DOCTOR: Po Flores Interpretating Date/Time 06/24/2017 11:33:50
--- NOTE | 2017-06-24 11:52 | HHI.HP ---
[facility] Physician Deep Wolfe M.D. Admission Diagnosis chest pain Diagnoses: (1) Chest pain Diagnosis: Principal Chief Complaint: Chest pain Travel History International Travel<30 Days: No Contact w/Intl Traveler <30 Da: No Traveled to Known Affected Are: No History of Present Illness 71-year-old female known history of diabetes, chronic back pain who presented to the emergency department for evaluation of chest pain. Patient indicates that the pain started yesterday when she was out working in the yard. She states that she was raking leaves, cleaning up the car for and started developing pain located in the middle part of her chest that she describes a sharp/stabbing pain that is 5/10 on a pain scale that went away after a couple minutes when she sat down and rested. Whenever she exerted herself the pain would come back. Patient states that the pain radiating to her back. She has some shortness of breath. She denied any nausea, vomiting, diaphoresis, lightheadedness, dizziness. The patient did not think much of it throughout the rest of the day and then this morning at approximately 9 AM when she went to go outside to work in the yard again she bent over to pick something up and the pain came back again. She went back in the house and told her and her brought her to the hospital for evaluation. Patient has been asymptomatic since being here at the hospital. Initial workup did not indicate any acute abnormality. Patient does have high risks of both her parents from heart disease in their 70s. Patient was recommended observation of the chest pain center. Review of Systems Cardiovascular: COMPLAINS OF: Chest pain Except as stated in HPI: all other systems reviewed are Neg Past Family Social History Past Medical History Diabetes Chronic back pain Past Surgical History Tonsillectomy Lung surgery with suturing of hole in her lung Cataract surgery Reported Medications Reported Meds & Active Scripts Active Reported Levemir Inj (Insulin Detemir) 1,000 unit/ 10 ML Vial 30 Units SQ BID Do not mix with any other Insulin. Gabapentin 100 Mg Cap 0 PO BID Glipizide 5 Mg Tab 2.5 Mg PO BIDAC Take 30 minutes before a meal Allergies: Coded Allergies: No Known Allergies (Unverified Allergy, Unknown, 06/24/17) Family History Reviewed and significant for mother in her 70s from myocardial infarction, father in his 70s from myocardial infarction. Social History Patient quit smoking 10 years ago, prior to that she smoked up to 3 pack of cigarettes a day since she was 21 years old. Denies any alcohol or illicit drug Physical Exam Vital Signs Vital Signs Date Time Temp Pulse Resp B/P (MAP) Pulse Ox O2 Delivery O2 Flow Rate FiO2 06/24/17 10:36 65 16 158/66 (96) 98 Room Air 06/24/17 09:05 16 Room Air 06/24/17 09:05 66 16 121/59 (79) 98 Room Air 06/24/17 07:55 77 16 06/24/17 07:55 97.9 77 16 162/84 (110) 98 Physical Exam GENERAL: Well-developed, well-nourished, in no acute distress. alert and orientated HEENT: Head is normocephalic without any lesions or masses noted. Facial features are symmetric. Eyes: Pupils equal round reactive to light. Extraocular muscles are intact. Conjunctivae were clear. Oropharyngeal: Pharynx without any erythema edema. Tongue is midline without deviation. Buccal mucosa is moist without any masses or lesions NECK: Supple without any masses. Trachea midline no deviation. No JVD, no bruits are appreciated CARDIAC: Regular rhythm, regular rate. S1/S2 are heard. No murmurs gallops or rubs. LUNGS: Clear to auscultation bilaterally. No wheeze, rhonchi or rales. No use of accessory muscles on inspiration or expiration. ABDOMEN: Soft, nontender. Nondistended. Bowel sounds heard in all 4 quadrants. No organomegaly or masses. Negative rebound, negative guarding EXTREMITIES: No edema, pulses are equal bilaterally. No cyanosis or clubbing NEUROLOGY: Mood and affect appear appropriate. Cranial nerves II through XII grossly intact. Muscle strength 5/5 in upper and lower extremities bilaterally. Deep tendon reflexes are 2+ in upper and lower extremities bilaterally. Laboratory Laboratory Tests Test 06/24/17 08:00 06/24/17 11:00 White Blood Count 6.8 Red Blood Count 4.24 Hemoglobin 12.8 Hematocrit 38.1 Mean Corpuscular Volume 89.8 Mean Corpuscular Hemoglobin 30.1 Mean Corpuscular Hemoglobin Concent 33.5 Red Cell Distribution Width 14.2 Platelet Count 171 Mean Platelet Volume 8.9 Neutrophils (%) (Auto) 69.9 Lymphocytes (%) (Auto) 20.0 Monocytes (%) (Auto) 5.6 Eosinophils (%) (Auto) 3.5 Basophils (%) (Auto) 1.0 Neutrophils # (Auto) 4.7 Lymphocytes # (Auto) 1.4 Monocytes # (Auto) 0.4 Eosinophils # (Auto) 0.2 Basophils # (Auto) 0.1 CBC Comment DIFF FINAL Differential Comment Blood Urea Nitrogen 19 Creatinine 1.20 Random Glucose 66 Calcium Level 8.9 Sodium Level 140 Potassium Level 3.6 Chloride Level 107 Carbon Dioxide Level 26.9 Anion Gap 6 Estimat Glomerular Filtration Rate 44 Total Creatine Kinase 97 90 Troponin I LESS THAN 0.02 LESS THAN 0.02 Result Diagram: 06/24/17 0800 06/24/17 1400 Imaging Last Impressions Chest X-Ray 06/24/17 0803 Signed Impressions: Service Date/Time: Saturday, June 24, 2017 08:06 - CONCLUSION: Diffuse mild interstitial process of undetermined chronicity MD Rina Sheppard VTE Risk Assessment Caprini VTE Risk Assessment: Mod/High Risk (score >= 2) Caprini Risk Assessment Model Point Value = 1 Point Value = 2 Point Value = 3 Point Value = 5 Age 41-60 Minor surgery BMI > 25 kg/m2 Swollen legs Varicose veins or History of unexplained or recurrent spontaneous Oral contraceptives or hormone replacement Sepsis (< 1 month) Serious lung disease, including pneumonia (< 1 month) Abnormal pulmonary function Acute myocardial infarction Congestive heart failure (< 1 month) History of inflammatory bowel disease Medical patient at bed rest Age 61-74 Arthroscopic surgery Major open surgery (> 45 min) Laparoscopic surgery (> 45 min) Malignancy Confined to bed (> 72 hours) Immobilizing plaster cast Central venous access Age >= 75 History of VTE Family history of VTE Factor V Leiden Prothrombin [id number] Lupus anticoagulant Anticardiolipin antibodies Elevated serum homocysteine Heparin-induced thrombocytopenia Other congenital or acquired thrombophilia Stroke (< 1 month) Elective arthroplasty Hip, pelvis, or leg fracture Acute spinal cord injury (< 1 month) Prophylaxis Regimen Total Risk Factor Score Risk Level Prophylaxis Regimen 0-1 Low Early ambulation 2 Moderate Order ONE of the following: *Sequential Compression Device (SCD) *Heparin 5000 units SQ BID 3-4 Higher Order ONE of the following medications: *Heparin 5000 units SQ TID *Enoxaparin/Lovenox 40 mg SQ daily (WT < 150 kg, CrCl > 30 mL/min) *Enoxaparin/Lovenox 30 mg SQ daily (WT < 150 kg, CrCl > 10-29 mL/min) *Enoxaparin/Lovenox 30 mg SQ BID (WT < 150 kg, CrCl > 30 mL/min) AND/OR *Sequential Compression Device (SCD) 5 or more Highest Order ONE of the following medications: *Heparin 5000 units SQ TID (Preferred with Epidurals) *Enoxaparin/Lovenox 40 mg SQ daily (WT < 150 kg, CrCl > 30 mL/min) *Enoxaparin/Lovenox 30 mg SQ daily (WT < 150 kg, CrCl > 10-29 mL/min) *Enoxaparin/Lovenox 30 mg SQ BID (WT < 150 kg, CrCl > 30 mL/min) AND *Sequential Compression Device (SCD) Assessment and Plan Assessment and Plan Chest pain Patient with increased risk factors include age, diabetes, history of tobacco use, family history of heart disease Acute coronary event has been ruled out with serial cardiac enzymes Serial EKGs were reviewed by myself and indicates sinus rhythm without any changes Myocardial perfusion was performed and indicates small to moderate reversible wall defect involving the anterior lateral and apical wall. Intermediate risk Consulted cardiology for recommendations Discussed the case with cardiology who indicates patient would benefit from cardiac catheterization, transfer patient to the main hospital Continue aspirin, start Nitropaste, start Lopressor 12.5 mg twice daily, start Lipitor 10 mg daily, oxygen as needed No anticoagulation per cardiology, unless in pain Obtain lipid panel Diabetes Accu-Cheks with sliding scale insulin Diabetic diet Acute renal failure superimposed on chronic kidney disease stage III Continue IV fluids Monitor renal function DVT prevention Sequential compression devices Physician Certification 2 Midnight Certification Type: Admission for Inpatient Services Order for Inpatient Services The services are ordered in accordance with Medicare regulations or non- Medicare payer requirements, as applicable. In the case of services not specified as inpatient-only, they are appropriately provided as inpatient services in accordance with the 2-midnight benchmark. Estimated LOS (days): 3 days is the estimated time the patient will need to remain in the hospital, assuming treatment plan goals are met and no additional complications. Post-Hospital Plan: Not yet determined Problem Qualifiers (1) Chest pain: Qualified Codes: R07.9 - Chest pain, unspecified Derrick Mast Jun 24, 2017 11:51
[2017-06-24] MEDS: INSULIN ASPART SUPPLEMENTAL SCALE SQ SCH ×3 (12:40→19:49)
[2017-06-24] MEDS ORDERED: REGADENOSON INJ 0.4 MG/5 ML SYR IV ONE (12:50)
[2017-06-24] MEDS ORDERED: DEXT 5%-NACL 0.45% 1000 ML INJ 1,000 ML IV SCH (13:00)
--- NOTE | 2017-06-24 13:53 | RADRPT ---
EXAM DATE/TIME: 06/24/2017 12:37 [facility] COMPARISON: No previous studies available for comparison. INDICATIONS : Substernal chest pain. Angina. DOSE: 25.4 mCi Tc99m Myoview at stress. 8.5 mCi Tc99m Myoview at rest. 0.4 mg Lexiscan STRESS SYMPTOMS: Dyspnea and weird feeling. EJECTION FRACTION: > 70% MEDICAL HISTORY : Hypertension. Diabetes mellitus type 2. SURGICAL HISTORY : Ankle. ENCOUNTER: Initial ACUITY: 1 day PAIN SCALE: 6/10 LOCATION: Substernal chest TECHNIQUE: The patient underwent pharmacologic stress with infusion of prescribed dose. Continuous ECG tracing was monitored during stress. Gated SPECT imaging was performed after stress and conventional SPECT i maging was performed at rest. The examination was performed on a SPECT/CT scanner, both attenuation and non-corrected datasets were reviewed. FINDINGS: DISTRIBUTION: The maximum perfused segment at stress is in the anterior wall. PERFUSION STUDY: There is a small to moderate size reversible defect involving the anterior lateral and apical simon w hich is of moderate severity.. GATED STUDY: There is a small area of apparent dyskinesis involving the apical wall. The ejection fraction is with in normal limits at 70%. CONCLUSION: 1. Small to moderate reversible wall defect involving anterior lateral and apical simon which could i ndicate a small area of ischemia. 2. Small area of apparent dyskinesis involving the apex. RISK CATEGORY: Intermediate (1-3% Annual Mortality Rate) Matthew Peterson MD on June 24, 2017 at 13:46 Board Certified Radiologist. This report was verified electronically.
[2017-06-24 14:32] LABS: GLUCOSE,RANDOM 103 MG/DL (74-106)
[2017-06-24 14:35] LABS: ALT (GPT) 18 U/L (10-53); AST (GOT) 14 U/L (15-37)
[2017-06-24 14:40] LABS: TROPONIN I LESS THAN 0.02 NG/ML (0.02-0.05)
[2017-06-24] MEDS ORDERED: NITROGLYCERIN 2% OINT 1 GM PACKET TOPICAL SCH (15:00)
[2017-06-24] MEDS: METOPROLOL TARTRATE 25 MG TAB PO SCH ×2 (15:12→19:47)
[2017-06-24] MEDS: ATORVASTATIN 10 MG TAB PO SCH (15:12)
[2017-06-24] MEDS: NS + KCL 20 MEQ INJ 1,000 ML IV SCH (17:42)
[2017-06-24] MEDS: NITROGLYCERIN 2% OINT 1 GM PACKET TOPICAL SCH (19:49)
[2017-06-24] MEDS: SODIUM CHLORIDE 0.9% FLUSH 10 ML FLUSH IV FLUSH SCH (19:49)
[2017-06-24] MEDS: TEMAZEPAM 15 MG CAP PO PRN (19:55)
[2017-06-25] VITALS (24 sets, daily range): BP systolic 102–124; BP diastolic 55–66; PULSE 58–80; RESP 17–20; TEMP 98–98.3; O2SAT 94–97
[2017-06-25] MEDS: NITROGLYCERIN 2% OINT 1 GM PACKET TOPICAL SCH ×4 (03:00→20:10)
[2017-06-25] MEDS: NS + KCL 20 MEQ INJ 1,000 ML IV SCH ×2 (03:55→16:47)
[2017-06-25 07:18] LABS: BICARBONATE 28.3 MEQ/L (21.0-32.0); CALCIUM 9.2 MG/DL (8.5-10.1); CREATININE 1.02 MG/DL (0.50-1.00)
[2017-06-25 07:20] LABS: CHOLESTEROL/ HDL RATIO 4.3 RATIO; HDL CHOLESTEROL 32.3 MG/DL (40.0-60.0)
[2017-06-25] MEDS: INSULIN ASPART SUPPLEMENTAL SCALE SQ SCH ×4 (08:00→21:00)
--- NOTE | 2017-06-25 08:47 | PD.CONS ---
HPI Service cardiology Consult Requested By Reason for Consult chest pain, abnormal stress test Primary Care Physician Deep Wolfe M.D. History of Present Illness This is a pleasant 71 yo WF with diabetes and no prior cardiac history who presented to [facility] in [place] yesterday after experiencing exertional chest pain while performing yard work. Chest pain would resolve with rest and reoccur with exertion. Pain felt to substernal chest and was rate 5/10. She underwent lexiscan stress testing which showed small to moderate defect and concern for ischemia. Troponins have been normal and EKG did not show concerning ST segment or T wave changes. She remains asymptomatic since admission and only reports exacerbation of prior low back pain. No SOB or palpitations. Review of Systems Consitutional: DENIES: Fatigue, Fever, Chills, Weight gain, Weight loss Respiratory: DENIES: Cough, Snoring, Shortness of breath, Wheezing, Sputum production Cardiovascular: DENIES: Palpitations, Syncope, Tachycardia Gastrointestinal: DENIES: Nausea, Vomiting, Change in bowel habits, Reflux, Bloody stools, Melena Past Family Social History Allergies: Coded Allergies: No Known Allergies (Unverified Allergy, Unknown, 06/24/17) Past Medical History Diabetes Chronic back pain Past Surgical History Tonsillectomy Lung surgery with suturing of hole in her lung Cataract surgery Reported Medications Reported Meds & Active Scripts Active Reported Levemir Inj (Insulin Detemir) 1,000 unit/ 10 ML Vial 30 Units SQ BID Do not mix with any other Insulin. Gabapentin 100 Mg Cap 0 PO BID Glipizide 5 Mg Tab 2.5 Mg PO BIDAC Take 30 minutes before a meal Active Ordered Medications Current Medications Medications (Trade) Dose Ordered Sig/Jaclyn Route Start Time Stop Time Status Last Admin (NS Flush) 2 ml UNSCH PRN IV FLUSH 06/24/17 10:45 (NS Flush) 2 ml BID IV FLUSH 06/24/17 21:00 06/24/17 19:49 (Tylenol) 500 mg Q4H PRN PO 06/24/17 11:00 ([place] 7.5-325 Mg) 1 tab Q4H PRN PO 06/24/17 11:00 (Zofran Inj) 4 mg Q6H PRN IV PUSH 06/24/17 11:00 (Nitrostat Sl) 0.4 mg Q5M PRN SL 06/24/17 10:45 (Aspirin) 325 mg DAILY PO 06/25/17 09:00 (Restoril) 15 mg HS PRN PO 06/24/17 10:45 06/24/17 19:55 (D50w (Vial) Inj) 50 ml UNSCH PRN IV PUSH 06/24/17 10:45 06/24/17 12:05 (Glucagon Inj) 1 mg UNSCH PRN OTHER 06/24/17 10:45 (NovoLOG SUPPLEMENTAL SCALE) 1 ACHS SLIDING SCALE SQ 06/24/17 12:00 (Lopressor) 12.5 mg Q12HR PO 06/24/17 15:00 06/24/17 19:47 (Lipitor) 10 mg DAILY PO 06/24/17 14:00 06/24/17 15:12 Potassium Chloride/Sodium Chloride 1,000 ml @ 84 mls/hr [id number] IV 06/24/17 16:00 06/24/17 17:42 (Nitroglycerin 2% Oint) 0.5 inch Q6H TOPICAL 06/24/17 21:00 06/24/17 19:49 Family History Reviewed and significant for mother in her 70s from myocardial infarction, father in his 70s from myocardial infarction. Social History Patient quit smoking 10 years ago, prior to that she smoked up to 3 pack of cigarettes a day since she was 21 years old. Denies any alcohol or illicit drug Physical Exam Vital Signs Vital Signs Date Time Temp Pulse Resp B/P (MAP) Pulse Ox O2 Delivery O2 Flow Rate FiO2 06/25/17 07:06 95 Room Air 06/25/17 07:06 98.2 74 17 102/57 (72) 95 06/25/17 06:00 68 06/25/17 05:00 63 06/25/17 04:00 Room Air 06/25/17 04:00 98.3 66 18 104/66 (79) 95 06/25/17 04:00 66 06/25/17 03:00 63 06/25/17 02:00 64 06/25/17 01:00 59 06/25/17 00:00 63 06/25/17 00:00 98.2 63 18 105/60 (75) 94 06/25/17 00:00 Room Air 06/24/17 23:00 59 06/24/17 22:00 57 06/24/17 21:13 98 21 06/24/17 21:00 58 06/24/17 20:00 68 06/24/17 20:00 98.0 68 20 143/71 (95) 98 06/24/17 20:00 Room Air 06/24/17 16:48 96 21 06/24/17 16:13 74 06/24/17 16:00 97.8 72 18 153/67 (95) 96 06/24/17 12:03 97.3 22 18 149/56 (87) 96 06/24/17 11:56 06/24/17 10:36 65 16 158/66 (96) 98 Room Air 06/24/17 09:05 16 Room Air 06/24/17 09:05 66 16 121/59 (79) 98 Room Air Physical Exam GENERAL: SKIN: Warm and dry. HEAD: Atraumatic. Normocephalic. EYES: Pupils equal and round. No scleral icterus. ENT: No nasal bleeding or discharge. NECK: Trachea midline. No JVD. CARDIOVASCULAR: Regular rate and rhythm. no murmurs RESPIRATORY: No accessory muscle use. Clear to auscultation. Breath sounds equal bilaterally. GASTROINTESTINAL: Abdomen soft, non-tender, nondistended. Hepatic and splenic margins not palpable. MUSCULOSKELETAL: Extremities without clubbing, cyanosis, or edema. No obvious deformities. NEUROLOGICAL: Awake and alert. No obvious cranial nerve deficits. s. Normal speech. PSYCHIATRIC: Appropriate mood and affect; insight and judgment normal. Laboratory Laboratory Tests Test 06/24/17 11:00 06/24/17 14:00 06/25/17 06:02 Total Creatine Kinase 90 79 Troponin I LESS THAN 0.02 LESS THAN 0.02 Random Glucose 103 76 Aspartate Amino Transf (AST/SGOT) 14 Alanine Aminotransferase (ALT/SGPT) 18 Blood Urea Nitrogen 22 Creatinine 1.02 Calcium Level 9.2 Sodium Level 143 Potassium Level 3.8 Chloride Level 108 Carbon Dioxide Level 28.3 Anion Gap 7 Estimat Glomerular Filtration Rate 53 Triglycerides Level 132 Cholesterol Level 139 LDL Cholesterol 80 HDL Cholesterol 32.3 Cholesterol/HDL Ratio 4.30 Result Diagram: 06/24/17 0800 06/25/17 0602 Imaging Last 48 hours Impressions Chest X-Ray 06/24/17 0803 Signed Impressions: Service Date/Time: Saturday, June 24, 2017 08:06 - CONCLUSION: Diffuse mild interstitial process of undetermined chronicity Dylan Alcala MD Myocardial Perfusion Scan Nuc Med 06/24/17 0000 Signed Impressions: Service Date/Time: Saturday, June 24, 2017 12:37 - CONCLUSION: 1. Small to moderate reversible wall defect involving anterior lateral and apical simon which could indicate a small area of ischemia. 2. Small area of apparent dyskinesis involving the apex. RISK CATEGORY: Intermediate (1-3%% Annual Mortality Rate) Matthew Peterson MD Assessment and Plan Problem List: (1) Chest pain ICD Codes: R07.9 - Chest pain, unspecified Status: Acute Assessment and Plan 71 yo WF with diabetes and no prior cardiac history who presented to [facility] in [place] yesterday after experiencing exertional chest pain while performing yard work. Chest pain would resolve with rest and reoccur with exertion. Pain felt to substernal chest and was rate 5/10. She underwent lexiscan stress testing which showed small to moderate defect and concern for ischemia. Troponins have been normal and EKG did not show concerning ST segment or T wave changes. chest pain- lexiscan reveals small-mod reversible defect to anterior lateral and apical wall with concern for ischemia. no chest pain since admission cont asa, statin, bb will plan for LHC on Tuesday. Problem Qualifiers (1) Chest pain: Qualified Codes: R07.9 - Chest pain, unspecified Malika Mock Jun 25, 2017 08:47
[2017-06-25] MEDS: SODIUM CHLORIDE 0.9% FLUSH 10 ML FLUSH IV FLUSH SCH ×2 (09:49→20:10)
[2017-06-25] MEDS: ATORVASTATIN 10 MG TAB PO SCH (09:49)
[2017-06-25] MEDS: METOPROLOL TARTRATE 25 MG TAB PO SCH ×2 (09:52→20:09)
[2017-06-25] MEDS: ASPIRIN 325 MG TAB PO SCH (09:53)
[2017-06-25] MEDS: ACETAMINOPHEN/HYDROcodone 325 MG/7.5 MG TAB PO PRN ×2 (09:58→16:47)
--- NOTE | 2017-06-25 12:15 | HHI.PR ---
Subjective Remarks Patient reports she had chest pain briefly this morning but it resolved. Currently comfortable. Objective Vitals Vital Signs Date Time Temp Pulse Resp B/P (MAP) Pulse Ox O2 Delivery O2 Flow Rate FiO2 06/25/17 11:17 96 21 06/25/17 07:06 95 Room Air 06/25/17 07:06 98.2 74 17 102/57 (72) 95 06/25/17 06:00 68 06/25/17 05:00 63 06/25/17 04:00 Room Air 06/25/17 04:00 98.3 66 18 104/66 (79) 95 06/25/17 04:00 66 06/25/17 03:00 63 06/25/17 02:00 64 06/25/17 01:00 59 06/25/17 00:00 63 06/25/17 00:00 98.2 63 18 105/60 (75) 94 06/25/17 00:00 Room Air 06/24/17 23:00 59 06/24/17 22:00 57 06/24/17 21:13 98 21 06/24/17 21:00 58 06/24/17 20:00 68 06/24/17 20:00 98.0 68 20 143/71 (95) 98 06/24/17 20:00 Room Air 06/24/17 16:48 96 21 06/24/17 16:13 74 06/24/17 16:00 97.8 72 18 153/67 (95) 96 I/O 06/24/17 06/24/17 06/24/17 06/25/17 06/25/17 06/25/17 07:00 15:00 23:00 07:00 15:00 23:00 Intake Total 200 ml 480 ml Output Total 700 ml Balance 200 ml -220 ml Intake Oral 480 ml IV Total 200 ml Output Urine Total 700 ml # Voids 1 # Bowel Movements 0 Result Diagram: 06/24/17 0800 06/25/17 0602 Imaging Last Impressions Chest X-Ray 06/24/17 0803 Signed Impressions: Service Date/Time: Saturday, June 24, 2017 08:06 - CONCLUSION: Diffuse mild interstitial process of undetermined chronicity Dylan Alcala MD Myocardial Perfusion Scan Nuc Med 06/24/17 0000 Signed Impressions: Service Date/Time: Saturday, June 24, 2017 12:37 - CONCLUSION: 1. Small to moderate reversible wall defect involving anterior lateral and apical simon which could indicate a small area of ischemia. 2. Small area of apparent dyskinesis involving the apex. RISK CATEGORY: Intermediate (1-3%% Annual Mortality Rate) Matthew Peterson MD Objective Remarks GENERAL: This is a well-nourished, well-developed patient, in no apparent distress. CARDIOVASCULAR: Normal rate and regular rhythm without murmurs, gallops, or rubs. RESPIRATORY: Good respiratory efforts. Breath sounds equal and clear to auscultation bilaterally. GASTROINTESTINAL: Abdomen soft, non-tender, non-distended. Normal active bowel sounds MUSCULOSKELETAL: Extremities without cyanosis, or edema. NEURO: Alert & Oriented x4 to person, place, time, situation. Moves all ext x4 PSYCH: Appropriate mood and affect. A/P Problem List: (1) Chest pain ICD Code: R07.9 - Chest pain, unspecified Status: Acute (2) Unstable angina ICD Code: I20.0 - Unstable angina Assessment and Plan 71-year-old female with: Unstable angina: Abnormal nuclear stress test. Patient with increased risk factors include age, diabetes, history of tobacco use, family history of heart disease Appreciate bereavement program coordinator input. Plan for heart catheterization on Tuesday Continue aspirin, Lopressor 12.5 mg twice daily, Lipitor 10 mg daily. No anticoagulation per cardiology, unless in pain Obtain lipid panel Diabetes Accu-Cheks with sliding scale insulin Diabetic diet Acute renal failure superimposed on chronic kidney disease stage III Improving. Continue IV fluids Monitor renal function DVT prevention Sequential compression devices Problem Qualifiers (1) Chest pain: Qualified Codes: R07.9 - Chest pain, unspecified Gretchen Whalen MD Jun 25, 2017 12:15
--- NOTE | 2017-06-25 14:52 | EKG ---
Date Performed: 06/24/2017 Time Performed: 14:07:01 PTAGE: 71 years EKG: Sinus rhythm BORDERLINE LEFT AXIS DEVIATION BORDERLINE ECG Since the PREVIOUS TRACING , no significant change noted PREVIOUS TRACIN06/24/2017 11.05 DOCTOR: Po Flores Interpretating Date/Time 06/25/2017 14:51:40
--- NOTE | 2017-06-25 14:52 | EKG ---
Date Performed: 06/24/2017 Time Performed: 11:05:40 PTAGE: 71 years EKG: Sinus rhythm BORDERLINE LEFT AXIS DEVIATION BORDERLINE ECG Since the PREVIOUS TRACING , no significant change noted PREVIOUS TRACIN06/24/2017 07.59 DOCTOR: Po Flores Interpretating Date/Time 06/25/2017 14:51:51
--- NOTE | 2017-06-25 18:09 | TR ---
Date Performed: 06/24/2017 Time Performed: 13:02:09 DOCTOR: Markie Bond DRUG LIST: CLINICAL HISTORY: CHEST PAIN REASON FOR TEST: Chest pain REASON FOR ENDING: OBSERVATION: CONCLUSION: Lexiscan stress test was performed under standard four minute protocol. Radionuclid e was injected one minute prior to ending the test. No electrocardiographic abormalities were present to suggest ischemia. Nuclear imaging and interpretation are pending. COMMENTS:
[2017-06-25] MEDS: TEMAZEPAM 15 MG CAP PO PRN (20:10)
[2017-06-26] VITALS (27 sets, daily range): BP systolic 123–139; BP diastolic 60–85; PULSE 60–80; RESP 18–20; TEMP 98–98.6; O2SAT 94–98
[2017-06-26] MEDS: NITROGLYCERIN 2% OINT 1 GM PACKET TOPICAL SCH ×4 (03:00→20:04)
[2017-06-26] MEDS: NS + KCL 20 MEQ INJ 1,000 ML IV SCH ×2 (03:45→15:17)
[2017-06-26 05:13] LABS: BICARBONATE 27.1 MEQ/L (21.0-32.0); CALCIUM 9.3 MG/DL (8.5-10.1); CREATININE 0.96 MG/DL (0.50-1.00)
[2017-06-26] MEDS: INSULIN ASPART SUPPLEMENTAL SCALE SQ SCH ×4 (08:00→20:10)
--- NOTE | 2017-06-26 08:17 | PD.CARD.PN ---
Subjective Subjective Remarks resting comfortably. denies chest pain or sob Objective Medications Current Medications Medications (Trade) Dose Ordered Sig/Jaclyn Route Start Time Stop Time Status Last Admin (NS Flush) 2 ml UNSCH PRN IV FLUSH 06/24/17 10:45 (NS Flush) 2 ml BID IV FLUSH 06/24/17 21:00 06/25/17 20:10 (Tylenol) 500 mg Q4H PRN PO 06/24/17 11:00 ([place] 7.5-325 Mg) 1 tab Q4H PRN PO 06/24/17 11:00 06/25/17 16:47 (Zofran Inj) 4 mg Q6H PRN IV PUSH 06/24/17 11:00 (Nitrostat Sl) 0.4 mg Q5M PRN SL 06/24/17 10:45 (Aspirin) 325 mg DAILY PO 06/25/17 09:00 06/25/17 09:53 (Restoril) 15 mg HS PRN PO 06/24/17 10:45 06/25/17 20:10 (D50w (Vial) Inj) 50 ml UNSCH PRN IV PUSH 06/24/17 10:45 06/24/17 12:05 (Glucagon Inj) 1 mg UNSCH PRN OTHER 06/24/17 10:45 (NovoLOG SUPPLEMENTAL SCALE) 1 ACHS SLIDING SCALE SQ 06/24/17 12:00 06/25/17 17:16 (Lopressor) 12.5 mg Q12HR PO 06/24/17 15:00 06/25/17 20:09 (Lipitor) 10 mg DAILY PO 06/24/17 14:00 06/25/17 09:49 Potassium Chloride/Sodium Chloride 1,000 ml @ 84 mls/hr [id number] IV 06/24/17 16:00 06/25/17 16:47 (Nitroglycerin 2% Oint) 0.5 inch Q6H TOPICAL 06/24/17 21:00 06/25/17 20:10 Vital Signs / I&O Vital Signs Date Time Temp Pulse Resp B/P (MAP) Pulse Ox O2 Delivery O2 Flow Rate FiO2 06/26/17 06:00 66 06/26/17 05:00 62 06/26/17 04:00 98.0 64 18 130/71 (90) 97 06/26/17 04:00 64 06/26/17 04:00 Room Air 06/26/17 03:00 63 06/26/17 02:00 65 06/26/17 01:00 62 06/26/17 00:00 Room Air 06/26/17 00:00 61 06/26/17 00:00 98.6 61 18 138/69 (92) 96 06/25/17 23:00 63 06/25/17 22:00 68 06/25/17 21:39 97 21 06/25/17 21:00 64 06/25/17 20:00 Room Air 06/25/17 20:00 98.3 62 20 124/66 (85) 95 06/25/17 20:00 62 06/25/17 16:40 98.0 66 18 114/57 (76) 97 06/25/17 14:00 62 06/25/17 13:00 58 06/25/17 12:21 98.2 60 18 117/55 (75) 96 06/25/17 12:00 80 06/25/17 11:17 96 21 06/25/17 11:00 74 06/25/17 10:00 80 06/25/17 09:00 70 I/O 06/25/17 06/25/17 06/25/17 06/26/17 06/26/17 06/26/17 07:00 15:00 23:00 07:00 15:00 23:00 Intake Total 1480 ml 1720 ml 1240 ml Output Total 700 ml 500 ml 550 ml Balance 780 ml 1220 ml 690 ml Intake Oral 480 ml 720 ml 240 ml IV Total 1000 ml 1000 ml 1000 ml Output Urine Total 700 ml 500 ml 550 ml # Bowel Movements 0 0 Physical Exam GENERAL: SKIN: Warm and dry. HEAD: Atraumatic. Normocephalic. EYES: Pupils equal and round. ENT: No nasal bleeding or discharge. NECK: Trachea midline. No JVD. CARDIOVASCULAR: Regular rate and rhythm. no murmurs RESPIRATORY: No accessory muscle use. Clear to auscultation. Breath sounds equal bilaterally. GASTROINTESTINAL: Abdomen soft, non-tender, nondistended. MUSCULOSKELETAL: Extremities without clubbing, cyanosis, or edema. No obvious deformities. NEUROLOGICAL: Awake and alert. No obvious cranial nerve deficits. Normal speech. PSYCHIATRIC: Appropriate mood and affect; insight and judgment normal. Laboratory Laboratory Tests Test 06/26/17 03:15 Blood Urea Nitrogen 25 MG/DL Creatinine 0.96 MG/DL Random Glucose 127 MG/DL Calcium Level 9.3 MG/DL Sodium Level 140 MEQ/L Potassium Level 3.9 MEQ/L Chloride Level 106 MEQ/L Carbon Dioxide Level 27.1 MEQ/L Anion Gap 7 MEQ/L Estimat Glomerular Filtration Rate 57 ML/MIN Assessment and Plan Problem List: (1) Chest pain ICD Codes: R07.9 - Chest pain, unspecified Status: Acute Assessment and Plan 71 yo WF with diabetes and no prior cardiac history who presented to [facility] in [place] yesterday after experiencing exertional chest pain while performing yard work. Chest pain would resolve with rest and reoccur with exertion. Pain felt to substernal chest and was rate 5/10. She underwent lexiscan stress testing which showed small to moderate defect and concern for ischemia. Troponins have been normal and EKG did not show concerning ST segment or T wave changes. chest pain- small-mod reversible defect to anterior lateral and apical wall with concern for ischemia seen on lexiscan no chest pain overnight cont asa, statin, bb will plan for LHC on Tuesday; keep npo after midnight Problem Qualifiers (1) Chest pain: Qualified Codes: R07.9 - Chest pain, unspecified Malika Mock Jun 26, 2017 08:17
[2017-06-26] MEDS: METOPROLOL TARTRATE 25 MG TAB PO SCH ×2 (08:31→20:04)
[2017-06-26] MEDS: SODIUM CHLORIDE 0.9% FLUSH 10 ML FLUSH IV FLUSH SCH ×2 (08:31→20:04)
[2017-06-26] MEDS: ASPIRIN 325 MG TAB PO SCH (08:31)
[2017-06-26] MEDS: ATORVASTATIN 10 MG TAB PO SCH (08:31)
--- NOTE | 2017-06-26 13:32 | HHI.PR ---
Subjective Remarks Patient reports she is feeling okay this morning. No chest pain or shortness of breath. Objective Vitals Vital Signs Date Time Temp Pulse Resp B/P (MAP) Pulse Ox O2 Delivery O2 Flow Rate FiO2 06/26/17 11:25 98.2 63 20 126/60 (82) 96 06/26/17 11:00 63 06/26/17 10:00 62 06/26/17 09:00 70 06/26/17 08:55 95 21 06/26/17 08:00 70 06/26/17 07:15 94 Room Air 06/26/17 07:15 98.4 78 18 123/85 (98) 94 06/26/17 07:00 67 06/26/17 06:00 66 06/26/17 05:00 62 06/26/17 04:00 98.0 64 18 130/71 (90) 97 06/26/17 04:00 64 06/26/17 04:00 Room Air 06/26/17 03:00 63 06/26/17 02:00 65 06/26/17 01:00 62 06/26/17 00:00 Room Air 06/26/17 00:00 61 06/26/17 00:00 98.6 61 18 138/69 (92) 96 06/25/17 23:00 63 06/25/17 22:00 68 06/25/17 21:39 97 21 06/25/17 21:00 64 06/25/17 20:00 Room Air 06/25/17 20:00 98.3 62 20 124/66 (85) 95 06/25/17 20:00 62 06/25/17 16:40 98.0 66 18 114/57 (76) 97 06/25/17 14:00 62 I/O 06/25/17 06/25/17 06/25/17 06/26/17 06/26/17 06/26/17 07:00 15:00 23:00 07:00 15:00 23:00 Intake Total 1480 ml 1720 ml 1240 ml 330 ml Output Total 700 ml 500 ml 550 ml Balance 780 ml 1220 ml 690 ml 330 ml Intake Oral 480 ml 720 ml 240 ml IV Total 1000 ml 1000 ml 1000 ml 330 ml Output Urine Total 700 ml 500 ml 550 ml # Bowel Movements 0 0 Result Diagram: 06/24/17 0800 06/26/17 0315 Objective Remarks GENERAL: This is a well-nourished, well-developed patient, in no apparent distress. CARDIOVASCULAR: Normal rate and regular rhythm without murmurs, gallops, or rubs. RESPIRATORY: Good respiratory efforts. Breath sounds equal and clear to auscultation bilaterally. GASTROINTESTINAL: Abdomen soft, non-tender, non-distended. Normal active bowel sounds MUSCULOSKELETAL: Extremities without cyanosis, or edema. NEURO: Alert & Oriented x4 to person, place, time, situation. Moves all ext x4 PSYCH: Appropriate mood and affect. A/P Problem List: (1) Chest pain ICD Code: R07.9 - Chest pain, unspecified Status: Acute (2) Unstable angina ICD Code: I20.0 - Unstable angina Assessment and Plan 71-year-old female with: Unstable angina: Abnormal nuclear stress test. Patient with increased risk factors include age, diabetes, history of tobacco use, family history of heart disease Appreciate side show entertainer input. Plan for heart catheterization tomorrow Continue aspirin, Lopressor 12.5 mg twice daily, Lipitor 10 mg daily. No anticoagulation per cardiology, unless in pain Lipid panel reviewed, and HDL low. Diabetes Accu-Cheks with sliding scale insulin Diabetic diet Acute renal failure superimposed on chronic kidney disease stage III Improving. Continue IV fluids in anticipation for heart catheterization. Monitor renal function DVT prevention Sequential compression devices Problem Qualifiers (1) Chest pain: Qualified Codes: R07.9 - Chest pain, unspecified Gretchen Whalen MD Jun 26, 2017 13:32
[2017-06-26] MEDS: TEMAZEPAM 15 MG CAP PO PRN (20:03)
[2017-06-26] MEDS: ACETAMINOPHEN/HYDROcodone 325 MG/7.5 MG TAB PO PRN (20:08)
[2017-06-27] VITALS (24 sets, daily range): BP systolic 92–155; BP diastolic 48–90; PULSE 62–81; RESP 16–18; TEMP 97.7–98.8; O2SAT 95–98
[2017-06-27] MEDS: NITROGLYCERIN 2% OINT 1 GM PACKET TOPICAL SCH ×2 (03:00→08:24)
[2017-06-27] MEDS: NS + KCL 20 MEQ INJ 1,000 ML IV SCH (03:35)
--- NOTE | 2017-06-27 07:38 | PD.CARD.PN ---
Subjective Subjective Remarks resting comfortably. denies chest pain or sob Objective Medications Current Medications Medications (Trade) Dose Ordered Sig/Jaclyn Route Start Time Stop Time Status Last Admin (NS Flush) 2 ml UNSCH PRN IV FLUSH 06/24/17 10:45 (NS Flush) 2 ml BID IV FLUSH 06/24/17 21:00 06/26/17 20:04 (Tylenol) 500 mg Q4H PRN PO 06/24/17 11:00 ([place] 7.5-325 Mg) 1 tab Q4H PRN PO 06/24/17 11:00 06/26/17 20:08 (Zofran Inj) 4 mg Q6H PRN IV PUSH 06/24/17 11:00 (Nitrostat Sl) 0.4 mg Q5M PRN SL 06/24/17 10:45 (Aspirin) 325 mg DAILY PO 06/25/17 09:00 06/26/17 08:31 (Restoril) 15 mg HS PRN PO 06/24/17 10:45 06/26/17 20:03 (D50w (Vial) Inj) 50 ml UNSCH PRN IV PUSH 06/24/17 10:45 06/24/17 12:05 (Glucagon Inj) 1 mg UNSCH PRN OTHER 06/24/17 10:45 (NovoLOG SUPPLEMENTAL SCALE) 1 ACHS SLIDING SCALE SQ 06/24/17 12:00 06/26/17 20:10 (Lopressor) 12.5 mg Q12HR PO 06/24/17 15:00 06/26/17 20:04 (Lipitor) 10 mg DAILY PO 06/24/17 14:00 06/26/17 08:31 Potassium Chloride/Sodium Chloride 1,000 ml @ 84 mls/hr [id number] IV 06/24/17 16:00 06/26/17 15:17 (Nitroglycerin 2% Oint) 0.5 inch Q6H TOPICAL 06/24/17 21:00 06/26/17 20:04 Vital Signs / I&O Vital Signs Date Time Temp Pulse Resp B/P (MAP) Pulse Ox O2 Delivery O2 Flow Rate FiO2 06/27/17 06:00 74 06/27/17 05:00 72 06/27/17 04:00 68 06/27/17 04:00 98.6 68 18 155/90 (111) 96 06/27/17 04:00 Room Air 06/27/17 03:00 72 06/27/17 02:00 75 06/27/17 01:00 74 06/27/17 00:00 Room Air 06/27/17 00:00 98.2 70 18 122/63 (82) 97 06/27/17 00:00 81 06/26/17 23:00 79 06/26/17 22:00 80 06/26/17 21:00 63 06/26/17 20:00 73 06/26/17 20:00 98.0 73 20 139/79 (99) 98 06/26/17 20:00 Room Air 06/26/17 18:00 72 06/26/17 17:00 74 06/26/17 16:00 68 06/26/17 15:17 98.3 71 18 125/64 (84) 95 06/26/17 15:00 72 06/26/17 14:00 66 06/26/17 13:00 60 06/26/17 12:00 66 06/26/17 11:25 98.2 63 20 126/60 (82) 96 06/26/17 11:00 63 06/26/17 10:00 62 06/26/17 09:00 70 06/26/17 08:55 95 21 06/26/17 08:00 70 I/O 06/26/17 06/26/17 06/26/17 06/27/17 06/27/17 06/27/17 07:00 15:00 23:00 07:00 15:00 23:00 Intake Total 1240 ml 330 ml 720 ml 1320 ml Output Total 550 ml 1700 ml 900 ml Balance 690 ml 330 ml -980 ml 420 ml Intake Oral 240 ml 720 ml 480 ml IV Total 1000 ml 330 ml 840 ml Output Urine Total 550 ml 1700 ml 900 ml # Bowel Movements 0 0 Physical Exam GENERAL: SKIN: Warm and dry. HEAD: Atraumatic. Normocephalic. EYES: Pupils equal and round. ENT: No nasal bleeding or discharge. NECK: Trachea midline. No JVD. CARDIOVASCULAR: Regular rate and rhythm. no murmurs RESPIRATORY: No accessory muscle use. Clear to auscultation. Breath sounds equal bilaterally. GASTROINTESTINAL: Abdomen soft, non-tender, nondistended. MUSCULOSKELETAL: Extremities without clubbing, cyanosis, or edema. No obvious deformities. NEUROLOGICAL: Awake and alert. No obvious cranial nerve deficits. Normal speech. PSYCHIATRIC: Appropriate mood and affect; insight and judgment normal. Laboratory Laboratory Tests Test 06/27/17 05:50 Assessment and Plan Problem List: (1) Chest pain ICD Codes: R07.9 - Chest pain, unspecified Status: Acute Assessment and Plan 71 yo WF with diabetes and no prior cardiac history who presented to [facility] in [place] after experiencing exertional chest pain while performing yard work. Chest pain would resolve with rest and reoccur with exertion. chest pain- small-mod reversible defect to anterior lateral and apical wall with concern for ischemia seen on lexiscan no chest pain overnight cont asa, statin, bb LHC planned for today Problem Qualifiers (1) Chest pain: Qualified Codes: R07.9 - Chest pain, unspecified Malika Mock Jun 27, 2017 07:38
[2017-06-27 07:53] LABS: BICARBONATE 24.9 MEQ/L (21.0-32.0); CALCIUM 9.2 MG/DL (8.5-10.1); CREATININE 0.81 MG/DL (0.50-1.00)
[2017-06-27] MEDS: INSULIN ASPART SUPPLEMENTAL SCALE SQ SCH ×4 (08:00→21:00)
[2017-06-27] MEDS: ATORVASTATIN 10 MG TAB PO SCH (08:17)
[2017-06-27] MEDS: SODIUM CHLORIDE 0.9% FLUSH 10 ML FLUSH IV FLUSH SCH ×2 (08:23→21:33)
[2017-06-27] MEDS: METOPROLOL TARTRATE 25 MG TAB PO SCH ×2 (08:23→21:33)
[2017-06-27] MEDS: ASPIRIN 325 MG TAB PO SCH (08:23)
[2017-06-27] MEDS ORDERED: HEPARIN-NS/PF FLUSH BAG 2,000 ML IV FLUSH ONE (08:35)
[2017-06-27] MEDS ORDERED: MIDAZOLAM HCL 2 MG/2 ML VIAL ONE ×2 (08:38→09:25)
[2017-06-27] MEDS ORDERED: ONDANSETRON HCL 4 MG/2 ML VIAL ONE (09:43)
[2017-06-27] MEDS ORDERED: SODIUM CHLOR 0.9% 1000 ML INJ 1,000 ML IV SCH (09:46)
[2017-06-27] MEDS ORDERED: TICAGRELOR 90 MG TAB PO ONE ×2 (09:48→10:00)
[2017-06-27] MEDS ORDERED: MISC INFORMATION XX ONE (10:00)
[2017-06-27] MEDS ORDERED: BACITRACIN OINT 0.9 GM PKT TOP ONE ×2 (10:00)
[2017-06-27] MEDS ORDERED: LIDOCAINE 2% JELLY 30 ML TUBE TOP PRN (10:00)
--- NOTE | 2017-06-27 10:01 | CATHPROC ---
[facility] HIS Report Study Information Study Number Admission Scheduled Start Study Start [id number] Jun 24 2017 2:32PM 06/26/2017 Jun 27 2017 8:18AM [place] [facility] Cardiac Catheterization Admit Source Facility Department Other [facility] - [facility] Cook Physician and Clinical Staff Initial Ryan Powell Firer Retort Batool Elder RN Recorder Hazel Araujo,RT(R) Scrub Dionne Garcia,RT(R) Procedures Performed Procedure Location (Site) Vessel Name Coronary Angiograms LCA Left Coronary Coronary Angiograms RCA Right Coronary Drug Eluting Inflatio RCA Mid Right Coronary Drug Eluting Inflatio RCA Prox Right Coronary L Heart Cath Pacemaker Temp Fem Vein (right) Femoral Vein PTCA RCA Mid Right Coronary PTCA RCA Prox Right Coronary Wire insertion Radial (right) Radial Art. Equipment Time Share Holder Description Size Mfg Part Number Used/Scraped COPILOT VALVE, BLEEDBACK [id number] 09:59 [employer]OCK[employer]T [employer] Used CONTROL *[id number] 09:01 MILLER MADSEN PACING CATHETER J CURVE FR 5 Used *[id number] TRANSDUCER, TRUWAVE [id number] 08:21 MILLER MADSEN * Used W/STOCKCOCK *[id number] CARDIOVASCULAR CATHETER, CORONARY CLASSIC [id number] 09:11 Used SYSTEMS INC. 1.25MM *[id number] CARDIOVASCULAR LUBRICANT, VIPERSLIDE [id number] 09:54 Used SYSTEMS INC. ATHERCTOMY *[id number] CARDIOVASCULAR WIRE, VIPER ADVANCE [id number] 09:10 Used SYSTEMS INC. CORONARY FLP *[id number] 09:39 CARDIVA MEDICAL VASCADE, FR6 CLOSURE SYSTEM FR 6\7 Used *[id number] *[id number] *[id number] 534-523T *[id number] 08:21 AMDL INDUSTRIES PACK, CCL CUSTOM * Used *7552188 08:21 AMDL INDUSTRIES SUPPORT, ARTERIAL ADULT 23280 *[id number] Used [id number] 08:21 MEDLINE PACER PEN, SKIN DUAL W/ RULER * Used *[id number] BALLOON, 1.25 X 6MM SPRINTER [id number] 08:58 MEDTRONIC 6MM Used LEGEND OTW *[id number] 09:20 MEDTRONIC BALLOON, 3.0 X 20MM EUPHORA 20MM Used *[id number] 09:34 MEDTRONIC STENT, 3.0 34MM DEBBIE 3.0 34MM [id number] Used 09:30 MEDTRONIC STENT, 3.0 38MM DEBBIE 3.0 38MM [id number] Used [id number] 08:56 [employer] MEDICAL 30 NADINE INDEFLATOR Used *3960101 BAND, RADIAL COMPRESSION TR [id number] 09:37 [employer] MEDICAL 24CM Used SHORT 24 *[id number] SHEATH, FR6 RADIAL PRELUDE 08:21 Fonemesh FR 6 [id number] Used EASE 11CM [id number] 08:58 Fonemesh SHEATH, FR6.5 PRELUDE 11CM FR 6.5 038ACT Used *[id number] [id number] 08:21 Fonemesh WIRE, EXCHANGE 260CM 3MMJ 260CM Used *[id number] 08:21 NYCOMED OMNIPAQUE, 350 MG, 150ML 150ML [id number] Used [id number] 09:04 SIOBHAN CABLE, ADAP 2000 * Used *49920 [id number] 08:21 CASTRO MEDICAL BLANKET,WARM AIR CCL * Used *[id number] WIRE, RUNTHROUGH NS FLOPPY 25-1013 08:56 TER[employer] MEDICAL 300CM Used .014 300CM *[id number] Equipment Model, Serial, Lot Number and Expiration Data Description Model Number Serial Number Lot Number Expiration Date BAND, RADIAL COMPRESSION TR [id number] 04-27-2020 SHORT 24 CATHETER, CORONARY CLASSIC [id number] 03-27-2019 1.25MM STENT, 3.0 34MM DEBBIE [id number] 03-30-2019 STENT, 3.0 38MM DEBBIE [id number] 10-19-2018 WIRE, VIPER ADVANCE CORONARY [id number] 06-25-2018 History: Current Medications Medication Dosage/Unit Route Frequency Last Date/Time Taken LOPRESSOR LIPITOR Glucophage History: Allergies Allergy Reaction No Known Allergies History: Symptoms/Diagnosis Selection Items Chest pain Labs Hgb (g/dl) Hct (%) WBC (l/cumm) Platelets (thousands) 11.60-17.00 35.00-51.00 4.00-11.00 150.00-450.00 12.8 38.1 6.8 171 Glucose (mg/dl) BUN (mg/dl) Creatinine (mg/dl) BUN:Creatinine (1:x) 74.00-106.00 7.00-18.00 0.50-1.30 10.00-20.00 130 24 0.8 30 Na (meq/l) K (meq/l) Cl (meq/l) CO2 (mmol/L) Ca (mg/dl) 136.00-145.00 3.50-5.10 98.00-107.00 21.00-32.00 8.50-10.10 137 4 106 24.9 9.2 Troponin I (ng/ml) CPK (u/l) CPK-MB (ng/ML) 0.02-0.05 26.00-308.00 0.50-3.60 0.02 79 Not Drawn Medication Medication Total Dose (Bolus/Oral) Medication Total Dosage/Unit 1% XYLOCAINE 30 mL BRILINTA 180 mg FENTANYL 100 mcg HEPARIN 6000 units NTG (IC) 400 mcg RADIAL COCKTAIL 5 mL (Bolus) VERSED 3 mg ZOFRAN 4 mg Medications (Bolus/Oral) Medication Time Given Dosage/Unit Administered By Reason VERSED 06/27/2017 8:46:55 AM 1 mg Batool Elder 1 mg VERSED given in lab by Batool Elder RN in Left Hand via Peripheral IV. Ordered by Panchito Richardson. FENTANYL 06/27/2017 8:47:12 AM 50 mcg Batool Elder 50 mcg FENTANYL given in lab by Batool Elder RN via Peripheral IV. 1% XYLOCAINE 06/27/2017 8:47:22 AM 20 mL Ryan Richardson 20 mL 1% XYLOCAINE given in lab by Ryan Richardson in Right Radial via Subcutaneous. RADIAL COCKTAIL 06/27/2017 8:49:59 AM 5 mL (Bolus) Ryan Richardson 5 mL (Bolus) RADIAL COCKTAIL given in lab by Ryan Richardson via Radial. Using [Solution Name]. nitro 200 mcg HEPARIN 06/27/2017 8:51:06 AM 3000 units Batool Elder 3000 units HEPARIN given in lab by Batool Elder, IVA via Peripheral IV. Ordered by Ryan Richardson. HEPARIN 06/27/2017 8:57:30 AM 3000 units Batool Elder 3000 units HEPARIN given in lab by Batool Elder RN via Peripheral IV. Ordered by Ryan Richardson. VERSED 06/27/2017 8:58:45 AM 1 mg Batool Elder 1 mg VERSED given in lab by Batool Elder RN via Peripheral IV. Ordered by Ryan Richardson. FENTANYL 06/27/2017 8:59:07 AM 25 mcg Batool Elder 25 mcg FENTANYL given in lab by Batool Elder RN via Peripheral IV. Ordered by Ryan Richardson. 1% XYLOCAINE 06/27/2017 8:59:13 AM 10 mL Ryan Richardson 10 mL 1% XYLOCAINE given in lab by Ryan Richardson in Right Groin via Subcutaneous. Ordered by Ryan Richardson. NTG (IC) 06/27/2017 9:16:18 AM 100 mcg Ryan Richardson 100 mcg NTG (IC) given in lab by Ryan Richardson via Intra-coronary. Ordered by Ryan Richardson. FENTANYL 06/27/2017 9:27:28 AM 25 mcg Batool Elder 25 mcg FENTANYL given in lab by Batool Elder RN via Peripheral IV. Ordered by Ryan Richardson. NTG (IC) 06/27/2017 9:27:59 AM 100 mcg Ryan Richardson 100 mcg NTG (IC) given in lab by Ryan Richardson via Intra-coronary. Ordered by Ryan Richardson. VERSED 06/27/2017 9:28:20 AM 1 mg Batool Elder 1 mg VERSED given in lab by Batool Elder, IVA via Peripheral IV. Ordered by Ryan Richardson. NTG (IC) 06/27/2017 9:32:32 AM 100 mcg Ryan Richardson 100 mcg NTG (IC) given in lab by Ryan Richardson via Intra-coronary. Ordered by Ryan Richardson. NTG (IC) 06/27/2017 9:37:48 AM 100 mcg Ryan Richardson 100 mcg NTG (IC) given in lab by Ryan Richardson via Intra-coronary. Ordered by Ryan Richardson. ZOFRAN 06/27/2017 9:44:00 AM 4 mg Batool Elder 4 mg ZOFRAN given in lab by Batool Elder, IVA via Central IV. Ordered by Ryan Richardson. BRILINTA 06/27/2017 9:48:17 AM 180 mg Batool Elder 180 mg BRILINTA given in lab by Batool Elder, RN via Oral. Ordered by Ryan Richardson. Medication (Drip) Medication Time Given Dosage/Unit Concentration/Unit Diluent (ml) Solution IV Solutions 06/27/2017 8:38:27 AM 0 mL (IV) 500 NaCl .9 Patient arrived on IV Solutions in Left Hand via Peripheral IV. Pump/Drip Flow = 20 ml/hr using NaCl .9. Initial Case Assessment Cardiovascular HR Rhythm NIBP Chest Pain 73 reg 142/74 0 Edema Present Skin color Skin None Normal Warm Dry Circulatory - Right Pulses Dorsalis Pedis Femoral Radial 1 1 3 Scale (0,1,2,3,4,d) Circulatory - Left Pulses Dorsalis Pedis Femoral Radial 1 1 Scale (0,1,2,3,4,d) Circulatory - Lower Extremities Color Lower Right Color Lower Left Normal Normal Neurological State Oriented to time-place- Alert Moves all extremities person Respiration - General Respiration Rate SpO2 (%) (B/min) 20 95 Final Case Assessment Cardiovascular HR Rhythm NIBP Chest Pain 66 reg 146/74 0 Edema Present Skin color Skin None Normal Warm Dry Circulatory - Right Pulses Dorsalis Pedis Femoral Radial 1 1 3 Scale (0,1,2,3,4,d) Circulatory - Left Pulses Dorsalis Pedis Femoral Radial 1 1 Scale (0,1,2,3,4,d) Circulatory - Lower Extremities Color Lower Right Color Lower Left Normal Normal Neurological State Oriented to time-place- Alert Moves all extremities person Respiration - General Respiration Rate SpO2 (%) (B/min) 13 94 Chronological Log Time Study Chronological Log 8:20:26 Patient arrived via Bed. 8:21:40 Patient Name, D.O.B, / Armband Verified By R.N. 8:22:44 Consent signed by the physician and the patient and verified by the [facility] [facility] [employer] staff. 8:23:49 Pre-op and post- op instructions given; patient acknowledges understanding of instructions. 8:24:53 Verbal Stimulation=2 Physical Stimulation=2 Airway=2 Respiration=2 TOTAL=8. (0=absent, 1=li mited, 2=present) 8:25:32 Patient has been NPO for More than 6Hrs. 8:27:37 Skin Breakdown-none Vitals capture started with the following parameters, Patient=Adult, Interval=5 min, Initial Pr uswjzr=357 mmHg, 8:36:18 Deflation Rate=5 mmHg, Cuff placed on Unknown 8:37:03 Allens test performed on the right radial and ulnar artery by ede with a positive resul t 8:37:26 HR=78 bpm, UAMS=415/74 mmhg, SpO2=96 %, Resp=19 B/min, Pain=0, Faith=10, Tom=2 8:37:26 Reference ECG taken 8:37:55 A # 20 IV was noted in the Antecubital (right). Grade = 0 saline locked 8:38:18 A # 20 IV was noted in the Hand (left). Grade = 0 8:38:27 Patient arrived on IV Solutions in Left Hand via Peripheral IV. Pump/Drip Flow = 20 ml/hr us ing NaCl .9. 8:38:44 History and physical on the chart or being dictated. Assessment: Initial Case, HR=73 BPM, Rhythm=reg, YOEQ=014/74 mmhg, Chest Pain=0, Edema=None, Col or=Normal, Skin = Warm, Dry Right Pulses: Farooq Ped=1, Femoral=1, Radial=3 Left Pulses: Farooq Ped=1, Femoral=1 8:39:15 Lower Right Extremities: Color=Normal Lower Left Extremities: Color=Normal Neurological: State=Alert, Ox3, MOMIN Respiration: Resp=20 B/min, SpO2=95 % 8:41:00 Right Radial and groin(s) prepped with 2% chlorhexidine, and draped after a 3 min. waiting t jo ann. 8:41:11 MD arrived. 8:42:00 HR=75 bpm, CTXB=673/71 mmhg, SpO2=96.0 %, Resp=16 B/min, Pain=0, Faith=10, Tom=2 8:43:05 Pressure channel 1 zeroed. 8:46:55 1 mg VERSED given in lab by Batool Elder, IVA in Left Hand via Peripheral IV. Ordered by Ryan Lu. Time Out. Correct patient, correct procedure, correct physician, power injector not loaded with contrast with surgical 8:46:56 team present. Time Out Concurred by MD and individual staff in procedure. 8:46:59 Case Start 8:47:12 50 mcg FENTANYL given in lab by Batool Elder, IVA via Peripheral IV. 8:47:16 Verbal Stimulation=2 Physical Stimulation=2 Airway=2 Respiration=2 TOTAL=8. (0=absent, 1=steanrs ited, 2=present) 8:47:22 20 mL 1% XYLOCAINE given in lab by Ryan Richardson in Right Radial via Subcutaneous. 8:47:32 WLOO=647/73 mmhg, SpO2=97.0 %, Resp=14 B/min, Pain=0, Faith=10, Tom=2 8:49:29 Access site was [email or web address].rt 8:49:36 A wire was inserted via Radial (right). A SHEATH, FR6 RADIAL PRELUDE EASE 11CM FR 6 was advanced into the Radial (right) using the Percu tanpetar 8:49:50 technique. 8:49:59 5 mL (Bolus) RADIAL COCKTAIL given in lab by Ryan Richardson via Radial. Using [Solution Name ]. nitro 200 mcg A JR 5.0 INFINITI CATHETER FR 5 was advanced over a wire. OMNIPAQUE, 350 MG, 150ML 150ML was use d for 8:50:15 injections. Recorded Pressure: LV, HR=70, Condition=Condition 1 8:50:42 (Left Ventricle) LV 91/5/8 Recorded Pressure: LV, Ao, HR=69, Condition=Condition 1 8:50:50 (Left Ventricle) LV 90/3/7, (Aorta) Ao 87/45/62 8:51:06 3000 units HEPARIN given in lab by Batool Elder, IVA via Peripheral IV. Ordered by Ryan Richardson. Recorded Pressure: Ao, HR=72, Condition=Condition 1 8:51:32 (Aorta) Ao 97/52/70 8:51:45 The RCA was injected and visualized at various angles. OMNIPAQUE, 350 MG, 150ML 150ML used. 8:52:01 HR=68 bpm, VXVG=475/50 mmhg, SpO2=95.0 %, Resp=11 B/min, Pain=0, Faith=10, Tom=2 8:52:41 Catheter was removed A JL 3.5 INFINITI CATHETER FR 5 was advanced over a wire. OMNIPAQUE, 350 MG, 150ML 150ML was use d for 8:52:58 injections. 8:53:48 The LCA was injected and visualized at various angles. OMNIPAQUE, 350 MG, 150ML 150ML used. 8:54:34 Catheter was removed 8:56:53 HR=71 bpm, AVWZ=410/59 mmhg, SpO2=94.0 %, Resp=11 B/min, Pain=0, Faith=10, Tom=2 8:57:30 3000 units HEPARIN given in lab by Batool Elder, RN via Peripheral IV. Ordered by Ryan Richardson. 8:58:45 1 mg VERSED given in lab by Batool Elder, IVA via Peripheral IV. Ordered by Ryan Richardson . 8:59:07 25 mcg FENTANYL given in lab by Batool Elder, IVA via Peripheral IV. Ordered by Panchito Richardson 8:59:13 10 mL 1% XYLOCAINE given in lab by Ryan Richardson in Right Groin via Subcutaneous. Ordered b Ryan Farris. 8:59:25 Access site was Right Femoral Vein. 8:59:37 A SHEATH, FR6.5 PRELUDE 11CM FR 6.5 was advanced into the Fem Vein (right) using the Percuta neous technique. 9:00:06 Disposable Defibrillator Pads Placed On Patient. 9:01:55 HR=69 bpm, VZNI=280/57 mmhg, SpO2=93.0 %, Resp=12 B/min, Pain=0, Faith=10, Tom=2 9:02:59 A PACING CATHETER J CURVE FR 5 was advanced to the right ventricle. Rate = 60, Output = 20, MA = 20. 9:03:29 Temporary pacing catheter sutured in place 9:03:35 Lead placement verified under fluoroscopy A JR 5.0 GUIDE CATHETER FR 6 was advanced over a wire. OMNIPAQUE, 350 MG, 150ML 150ML was used f or 9:05:12 injections. 9:05:45 Activated Clotting Time Drawn 9:06:40 A WIRE, RUNTHROUGH NS FLOPPY .014 300CM 300CM was inserted via Radial (right). 9:06:58 HR=61 bpm, NIBP=98/50 mmhg, SpO2=95.0 %, Resp=12 B/min, Pain=0, Faith=9, Tom=2 9:07:19 Interventional wire has crossed the lesion A BALLOON, 1.25 X 6MM SPRINTER LEGEND OTW 6MM was inserted over WIRE, RUNTHROUGH NS FLOPPY .014 9:09:02 300CM 300CM via the Radial (right). 9:09:55 The previous wire was exchanged for a WIRE, VIPER ADVANCE CORONARY. 9:10:41 ACT (Normal Range 90-180) = 371 9:11:55 HR=60 bpm, NIBP=99/62 mmhg, SpO2=95.0 %, Resp=11 B/min, Pain=0, Faith=9, Tom=2 9:15:03 Balloon Removed. 9:15:58 An CATHETER, CORONARY CLASSIC 1.25MM catheter was inserted into the Radial (right). 9:16:18 100 mcg NTG (IC) given in lab by Ryan Richardson via Intra-coronary. Ordered by Pedro Richardson 9:16:57 CSI athrectomy to proximal and mid RCA with multiple runs 9:17:33 HR=59 bpm, NIJO=036/63 mmhg, SpO2=95.0 %, Resp=13 B/min, Pain=0, Faith=9, Tom=2 9:22:01 HR=42 bpm, ENHT=020/63 mmhg, SpO2=94.0 %, Resp=11 B/min, Pain=0, Faith=10, Tom=2 9:23:08 Catheter was removed w/o difficulty 9:24:25 Activated Clotting Time Drawn 9:24:39 A BALLOON, 3.0 X 20MM EUPHORA 20MM was inserted over WIRE, VIPER ADVANCE CORONARY via the Ra dial (right). A BALLOON, 3.0 X 20MM EUPHORA 20MM over a WIRE, VIPER ADVANCE CORONARY in the RCA Mid was inflat ed using 9:24:50 a 30 NADINE INDEFLATOR at 10 nadine for 10 sec. A BALLOON, 3.0 X 20MM EUPHORA 20MM over a WIRE, VIPER ADVANCE CORONARY in the RCA Mid was inflat ed using 9:25:13 a 30 NADINE INDEFLATOR at 10 nadine for 8 sec. A BALLOON, 3.0 X 20MM EUPHORA 20MM over a WIRE, VIPER ADVANCE CORONARY in the RCA Prox was infla jessica 9:25:36 using a 30 NADINE INDEFLATOR at 10 nadine for 6 sec. A BALLOON, 3.0 X 20MM EUPHORA 20MM over a WIRE, VIPER ADVANCE CORONARY in the RCA Prox was infla jessica 9:25:56 using a 30 NADINE INDEFLATOR at 10 nadine for 10 sec. 9:27:00 HR=59 bpm, NIBP=95/63 mmhg, SpO2=97.0 %, Resp=16 B/min, Pain=0, Faith=9, Tom=2 9:27:28 25 mcg FENTANYL given in lab by Batool Elder, RN via Peripheral IV. Ordered by Panchito Richardson. 9:27:59 100 mcg NTG (IC) given in lab by Ryan Richardson via Intra-coronary. Ordered by Pedro Richardson 9:28:20 1 mg VERSED given in lab by Batool Elder, IVA via Peripheral IV. Ordered by Ryan Richardson . 9:30:31 ACT (Normal Range 90-180) = 376 A STENT, 3.0 38MM DEBBIE 3.0 38MM was advanced through a JR 5.0 GUIDE CATHETER FR 6 over a WIRE, V IPER 9:30:50 ADVANCE CORONARY. A STENT, 3.0 38MM DEBBIE 3.0 38MM was deployed using a 30 NADINE INDEFLATOR at 16 atmospheres for 13 seconds in 9:31:03 the RCA Mid. 9:32:08 Re-inflated the stent balloon in the RCA Prox to 12 NADINE for 7 seconds. 9:32:32 HR=60 bpm, ODWC=171/73 mmhg, SpO2=94.0 %, Resp=12 B/min, Pain=0, Faith=9, Tom=2 9:32:32 100 mcg NTG (IC) given in lab by Ryan Richardson via Intra-coronary. Ordered by Chichi Richardson enIggy 9:33:11 Delivery device removed A STENT, 3.0 34MM DEBBIE 3.0 34MM was advanced through a JR 5.0 GUIDE CATHETER FR 6 over a WIRE, VIPER 9:34:34 ADVANCE CORONARY. A STENT, 3.0 34MM DEBBIE 3.0 34MM was deployed using a 30 NADINE INDEFLATOR at 16 atmospheres for 12 seconds in 9:35:20 the RCA Prox. 9:36:22 Delivery device removed 9:37:02 HR=68 bpm, MPAB=993/74 mmhg, SpO2=95.0 %, Resp=10 B/min, Pain=0, Faith=10, Tom=2 9:37:48 100 mcg NTG (IC) given in lab by Ryan Richardson via Intra-coronary. Ordered by Chichi Richardson 9:38:01 Wire removed 9:38:10 Catheter was removed 9:38:12 Temporary pacer removed 9:39:16 VASCADE, FR6 CLOSURE SYSTEM FR 6\7 placement in the Fem Vein (right) 9:41:41 Case End Assessment: Final Case, HR=66 BPM, Rhythm=reg, DEBL=833/74 mmhg, Chest Pain=0, Edema=None, Holman r=Normal, Skin = Warm, Dry Right Pulses: Farooq Ped=1, Femoral=1, Radial=3 Left Pulses: Farooq Ped=1, Femoral=1 9:41:58 Lower Right Extremities: Color=Normal Lower Left Extremities: Color=Normal Neurological: State=Alert, Ox3, MOMIN Respiration: Resp=13 B/min, SpO2=94 % 9:42:07 HR=67 bpm, LIFZ=118/71 mmhg, SpO2=92.0 %, Resp=10 B/min, Pain=0, Faith=10, Tom=2 9:43:19 No case complications noted. 9:43:21 Cine recording checked. 9:43:23 Bedside Report will be given. 9:43:25 Implantable Device card placed in patient's chart. 9:43:32 Defibrillator and ground pads removed. Skin intact. 9:43:36 A Left Heart Cath was performed. 9:44:00 4 mg ZOFRAN given in lab by Batool Elder, RN via Central IV. Ordered by Ryan Richardson. Radial Compression Device Used. 10 mLs of air placed in BAND, RADIAL COMPRESSION TR SHORT 24 24 CM. Affected 9:45:53 hand 97 % O2 saturation. 9:47:41 HR=67 bpm, NXEP=133/88 mmhg, SpO2=95.0 %, Resp=14 B/min, Pain=0, Faith=10, Tom=2 9:48:17 180 mg BRILINTA given in lab by Batool Elder, RN via Oral. Ordered by Ryan Richardson. 9:51:44 Patient moved to stretcher End Study - Contrast Media Used In Study Contrast Total Opened (mL) Total Used (mL) Total Wasted (mL) Omnipaque 70 70 0 End Study - Maximum Contrast Load Max Contrast Load (mL) 455.7 End Study - Radiation Exposure Fluoro Time (minutes) 9.8 End Study - Patient Disposition Complications Transferred To Interventional Outcome No Telemetry Bed successful
--- NOTE | 2017-06-27 10:02 | PD.CARD.PN ---
Assessment and Plan Assessment and Plan d/w dr. tony NPO p [place] implantable loop recorder tomorrow Ryan Richardson MD Jun 27, 2017 10:02
--- NOTE | 2017-06-27 10:54 | MA ---
cc: Ryan Richardson MD DATE: 06/27/2017 INDICATIONS: Unstable angina, intermediate risk stress test. PROCEDURES PERFORMED: 1. Fluoroscopy with interpretation. 2. Coronary angiography. 3. Left heart catheterization. 4. Orbital rotational atherectomy of the right coronary artery. 5. Percutaneous endovascular stenting with drug-eluting stents to the right coronary artery. METHOD: Risks, benefits and alternatives discussed with the patient. The patient understood and consented to the procedure. The patient was brought into catheterization lab. The right lower wrist was prepped and draped in a sterile fashion. The right wrist was anesthetized with 2% lidocaine. The right radial artery was cannulated and a 6-Croatian 7 cm sheath was placed without difficulty. LEFT HEART CATHETERIZATION: Intra 90/7 mmHg. CORONARY ANGIOGRAPHY: 1. Left main coronary artery is widely patent. 2. Left anterior descending coronary artery has mild luminal irregularities. 3. Left circumflex coronary artery gives rise to an obtuse marginal branch with minor luminal irregularities. 4. Right coronary artery is heavily calcified in the mid segment with a 99% subtotally occluded vessel. The ostium also has an 80 percent stenosis with considerable dampening upon engagement. The posterior descending and posterolateral branches are widely patent. PERCUTANEOUS INTERVENTION: The right coronary artery was selectively engaged with a 6-Croatian JR5 guide catheter. 0.014, 300 cm Terumo Runthrough wire was navigated down to the distal posterior descending branch. A 1.25 x 6 mm tlar-qbi-yees balloon was then advanced down to the distal posterior descending branch and the Terumo Runthrough wire removed. A 0.014 inch, 335 cm ViperWire was then navigated down to the distal coronary posterior descending artery. The balloon was removed. Heparin was administered throughout the entire procedure to maintain appropriate coagulation. A 1.25 mm coronary CSI atherectomy catheter was then prepped, advanced out to the right coronary artery. Four sequential passes at 80,000 revolutions per minute were performed through the entire length of the proximal to mid right coronary artery. Nitroglycerin was administered intracoronary. Repeat angiography still showed residual stenosis. A 3.0 x 20 mm Medtronic Euphora balloon was then deployed on four sequential inflations to the entire right coronary artery. A 3.0 x 38 mm RX Resolute Anthony stent was advanced down to the right coronary and deployed. A 3.0 x 34 mm Resolute Anthony stent was advanced to the proximal right coronary artery with minimal stent overlap covering the ostium, but not extending into the aorta and deployed. Repeat angiography showed YOUNG 3 flow, no residual stenosis. The guide catheter was then removed and percutaneous intervention continued. A in the right femoral vein. A 5-Croatian balloon-tipped temporary pacemaker was then advanced through the groin to the level of the right ventricular apex. Appropriate capture and sensing was confirmed and utilized during the procedure. CONCLUSIONS: 1. Severely stenotic and calcific right coronary artery. 2. Successful percutaneous intervention and orbital rotational atherectomy of the right coronary artery. 3. Successful utilization of temporary transvenous pacemaker. PLAN: 1. Right venous sheath was removed and VASCADE hemostatic device placement. 2. Aspirin, Brilinta, beta lawson, statin will be administered. 3. We will monitor the patient closely for any post-procedural complications and potential discharge later today. MD IVETTE Morejon/DL/rr , 09:57 AM , 10:25 AM
[2017-06-27] MEDS ORDERED: cloNIDine HCL 0.1 MG TAB PO PRN (11:45)
--- NOTE | 2017-06-27 12:07 | HHI.PR ---
Subjective Remarks Patient seen after heart catheterization. She reports significant nausea. BP uncontrolled. She denies chest pain. Objective Vitals Vital Signs Date Time Temp Pulse Resp B/P (MAP) Pulse Ox O2 Delivery O2 Flow Rate FiO2 06/27/17 08:10 95 Room Air 06/27/17 08:10 67 06/27/17 08:10 67 06/27/17 08:10 97.7 81 18 92/48 (63) 95 06/27/17 06:00 74 06/27/17 05:00 72 06/27/17 04:00 68 06/27/17 04:00 98.6 68 18 155/90 (111) 96 06/27/17 04:00 Room Air 06/27/17 03:00 72 06/27/17 02:00 75 06/27/17 01:00 74 06/27/17 00:00 Room Air 06/27/17 00:00 98.2 70 18 122/63 (82) 97 06/27/17 00:00 81 06/26/17 23:00 79 06/26/17 22:00 80 06/26/17 21:00 63 06/26/17 20:00 73 06/26/17 20:00 98.0 73 20 139/79 (99) 98 06/26/17 20:00 Room Air 06/26/17 18:00 72 06/26/17 17:00 74 06/26/17 16:00 68 06/26/17 15:17 98.3 71 18 125/64 (84) 95 06/26/17 15:00 72 06/26/17 14:00 66 06/26/17 13:00 60 I/O 06/26/17 06/26/17 06/26/17 06/27/17 06/27/17 06/27/17 07:00 15:00 23:00 07:00 15:00 23:00 Intake Total 1240 ml 330 ml 720 ml 1320 ml 1000 ml Output Total 550 ml 1700 ml 900 ml Balance 690 ml 330 ml -980 ml 420 ml 1000 ml Intake Oral 240 ml 720 ml 480 ml IV Total 1000 ml 330 ml 840 ml 1000 ml Output Urine Total 550 ml 1700 ml 900 ml # Bowel Movements 0 0 Result Diagram: 06/24/17 0800 06/27/17 0550 Objective Remarks GENERAL: This is a well-nourished, well-developed patient, in no apparent distress. CARDIOVASCULAR: Normal rate and regular rhythm without murmurs, gallops, or rubs. RESPIRATORY: Good respiratory efforts. Breath sounds equal and clear to auscultation bilaterally. GASTROINTESTINAL: Abdomen soft, non-tender, non-distended. Normal active bowel sounds MUSCULOSKELETAL: Extremities without cyanosis, or edema. NEURO: Alert & Oriented x4 to person, place, time, situation. Moves all ext x4 PSYCH: Appropriate mood and affect. A/P Problem List: (1) Chest pain ICD Code: R07.9 - Chest pain, unspecified Status: Acute (2) Unstable angina ICD Code: I20.0 - Unstable angina Assessment and Plan 71-year-old female with: Unstable angina: Abnormal nuclear stress test. Patient with increased risk factors include age, diabetes, history of tobacco use, family history of heart disease Appreciate chemical laboratory technician input. Status post heart catheterization with stenting of the RCA. Continue aspirin, Lopressor 12.5 mg twice daily, Lipitor 10 mg daily. Patient started on Brilinta. Lipid panel reviewed, and HDL low. Diabetes Accu-Cheks with sliding scale insulin Diabetic diet Acute renal failure superimposed on chronic kidney disease stage III Resolved. Discontinue IV fluid Monitor renal function Nausea: Probably related to anesthesia. Monitor. Antiemetics as needed. DVT prevention Sequential compression devices Discharge Planning Probable DC in AM if remain stable. Problem Qualifiers (1) Chest pain: Qualified Codes: R07.9 - Chest pain, unspecified Gretchen Whalen MD Jun 27, 2017 12:07
[2017-06-27] MEDS ORDERED: IOHEXOL 350 MG/ML 100 ML BTL (for Cath Lab) OTHER ONE (14:19)
[2017-06-27] MEDS: TICAGRELOR 90 MG TAB PO SCH (21:34)
[2017-06-28] VITALS (15 sets, daily range): BP systolic 117–140; BP diastolic 66–74; PULSE 61–79; RESP 16–18; TEMP 98–98.4; O2SAT 95–98
[2017-06-28 06:51] LABS: BASOPHIL % 0.5 % (0.0-2.0); EOSINOPHIL # 0.2 TH/MM3 (0-0.4); EOSINOPHIL % 3.1 % (0.0-4.0); HEMATOCRIT 40.6 % (35.0-46.0); HEMOGLOBIN 13.9 GM/DL (11.6-15.3); LYMPH % 24.1 % (9.0-44.0); LYMPHOCYTE # 1.8 TH/MM3 (1.0-4.8); MEAN CELL VOLUME 89.1 FL (80.0-100.0); MEAN CORPUSCULAR HEMOGLOBIN 30.6 PG (27.0-34.0); MEAN CORPUSCULAR HGB CONC 34.3 % (32.0-36.0); MEAN PLATELET VOLUME 9.9 FL (7.0-11.0); MONO % 7.3 % (0.0-8.0); MONOCYTE # 0.6 TH/MM3 (0-0.9); PLATELET COUNT 175 TH/MM3 (150-450); RED BLOOD COUNT 4.55 MIL/MM3 (4.00-5.30); WHITE BLOOD COUNT 7.6 TH/MM3 (4.0-11.0)
[2017-06-28 07:16] LABS: CALCIUM 9.4 MG/DL (8.5-10.1); CREATININE 0.87 MG/DL (0.50-1.00)
[2017-06-28 07:18] LABS: CHOLESTEROL/ HDL RATIO 5.41 RATIO; HDL CHOLESTEROL 29.9 MG/DL (40.0-60.0)
--- NOTE | 2017-06-28 07:36 | PD.CARD.PN ---
Subjective Subjective Remarks resting comfortably. denies chest pain or sob, nausea resolved Objective Medications Current Medications Medications (Trade) Dose Ordered Sig/Jaclyn Route Start Time Stop Time Status Last Admin (NS Flush) 2 ml UNSCH PRN IV FLUSH 06/24/17 10:45 (NS Flush) 2 ml BID IV FLUSH 06/24/17 21:00 06/27/17 21:33 (Tylenol) 500 mg Q4H PRN PO 06/24/17 11:00 06/27/17 23:11 ([place] 7.5-325 Mg) 1 tab Q4H PRN PO 06/24/17 11:00 06/26/17 20:08 (Zofran Inj) 4 mg Q6H PRN IV PUSH 06/24/17 11:00 (Nitrostat Sl) 0.4 mg Q5M PRN SL 06/24/17 10:45 (Restoril) 15 mg HS PRN PO 06/24/17 10:45 06/26/17 20:03 (D50w (Vial) Inj) 50 ml UNSCH PRN IV PUSH 06/24/17 10:45 06/24/17 12:05 (Glucagon Inj) 1 mg UNSCH PRN OTHER 06/24/17 10:45 (NovoLOG SUPPLEMENTAL SCALE) 1 ACHS SLIDING SCALE SQ 06/24/17 12:00 06/27/17 21:00 (Lopressor) 12.5 mg Q12HR PO 06/24/17 15:00 06/27/17 21:33 (Brilinta) 90 mg BID PO 06/27/17 21:00 06/27/17 21:34 (Xylocaine 2% Jelly) 1 applic UNSCH X1 PRN TOP 06/27/17 10:00 06/28/17 09:59 (Aspirin) 81 mg DAILY PO 06/28/17 09:00 (Lipitor) 40 mg DAILY PO 06/28/17 09:00 (Catapres) 0.1 mg Q6H PRN PO 06/27/17 11:45 06/27/17 11:54 Vital Signs / I&O Vital Signs Date Time Temp Pulse Resp B/P (MAP) Pulse Ox O2 Delivery O2 Flow Rate FiO2 06/28/17 06:00 79 06/28/17 05:00 69 06/28/17 04:00 68 06/28/17 03:30 98.4 68 16 140/68 (92) 95 06/28/17 03:00 65 06/28/17 02:00 65 06/28/17 01:00 65 06/28/17 00:00 64 06/27/17 23:00 80 06/27/17 23:00 96 Room Air 06/27/17 23:00 98.4 72 16 151/72 (98) 96 06/27/17 22:00 68 06/27/17 21:00 74 06/27/17 20:00 98.8 76 16 141/57 (85) 98 06/27/17 20:00 98 Room Air 06/27/17 20:00 76 06/27/17 19:00 80 06/27/17 18:00 76 06/27/17 17:00 70 06/27/17 16:10 97.9 78 16 128/66 (86) 97 06/27/17 16:00 71 06/27/17 15:00 72 06/27/17 14:00 114/60 (78) 06/27/17 14:00 74 06/27/17 13:02 16 110/60 (77) 97 06/27/17 13:00 62 06/27/17 13:00 16 105/60 (75) 97 06/27/17 12:00 98.4 75 16 140/79 (99) 96 06/27/17 12:00 74 06/27/17 11:00 74 06/27/17 08:10 95 Room Air 06/27/17 08:10 67 06/27/17 08:10 67 06/27/17 08:10 97.7 81 18 92/48 (63) 95 06/27/17 08:00 68 I/O 06/27/17 06/27/17 06/27/17 06/28/17 06/28/17 06/28/17 07:00 15:00 23:00 07:00 15:00 23:00 Intake Total 1320 ml 1000 ml 950 ml 240 ml Output Total 900 ml 450 ml 1000 ml Balance 420 ml 1000 ml 500 ml -760 ml Intake Oral 480 ml 450 ml 240 ml IV Total 840 ml 1000 ml 500 ml Output Urine Total 900 ml 450 ml 1000 ml # Bowel Movements 0 0 0 Physical Exam GENERAL: SKIN: Warm and dry. HEAD: Atraumatic. Normocephalic. EYES: Pupils equal and round. ENT: No nasal bleeding or discharge. NECK: Trachea midline. No JVD. CARDIOVASCULAR: Regular rate and rhythm. no murmurs RESPIRATORY: No accessory muscle use. Clear to auscultation. Breath sounds equal bilaterally. GASTROINTESTINAL: Abdomen soft, non-tender, nondistended. MUSCULOSKELETAL: Extremities without clubbing, cyanosis, or edema. No obvious deformities. NEUROLOGICAL: Awake and alert. No obvious cranial nerve deficits. Normal speech. PSYCHIATRIC: Appropriate mood and affect; insight and judgment normal. Laboratory Laboratory Tests Test 06/27/17 20:13 06/28/17 05:08 Activated Partial Thromboplast Time 24.7 SEC White Blood Count 7.6 TH/MM3 Red Blood Count 4.55 MIL/MM3 Hemoglobin 13.9 GM/DL Hematocrit 40.6 % Mean Corpuscular Volume 89.1 FL Mean Corpuscular Hemoglobin 30.6 PG Mean Corpuscular Hemoglobin Concent 34.3 % Red Cell Distribution Width 14.0 % Platelet Count 175 TH/MM3 Mean Platelet Volume 9.9 FL Neutrophils (%) (Auto) 65.0 % Lymphocytes (%) (Auto) 24.1 % Monocytes (%) (Auto) 7.3 % Eosinophils (%) (Auto) 3.1 % Basophils (%) (Auto) 0.5 % Neutrophils # (Auto) 5.0 TH/MM3 Lymphocytes # (Auto) 1.8 TH/MM3 Monocytes # (Auto) 0.6 TH/MM3 Eosinophils # (Auto) 0.2 TH/MM3 Basophils # (Auto) 0.0 TH/MM3 CBC Comment DIFF FINAL Differential Comment Blood Urea Nitrogen 21 MG/DL Creatinine 0.87 MG/DL Random Glucose 138 MG/DL Calcium Level 9.4 MG/DL Sodium Level 138 MEQ/L Potassium Level 3.8 MEQ/L Chloride Level 102 MEQ/L Carbon Dioxide Level 28.0 MEQ/L Anion Gap 8 MEQ/L Estimat Glomerular Filtration Rate 64 ML/MIN Total Creatine Kinase 429 U/L Triglycerides Level 163 MG/DL Cholesterol Level 162 MG/DL LDL Cholesterol 100 MG/DL HDL Cholesterol 29.9 MG/DL Cholesterol/HDL Ratio 5.41 RATIO Assessment and Plan Problem List: (1) Chest pain ICD Codes: R07.9 - Chest pain, unspecified Status: Acute Assessment and Plan 71 yo WF with diabetes who presented to [facility] in [place] after experiencing exertional chest pain while performing yard work. CAD- s/p PCI REBECA RCA yesterday, with temporary transvenous pacemaker feeling well cont asa, Brilinta, bb and statin. likely will be cleared for discharge today Problem Qualifiers (1) Chest pain: Qualified Codes: R07.9 - Chest pain, unspecified Malika Mock Jun 28, 2017 07:36
[2017-06-28] MEDS: INSULIN ASPART SUPPLEMENTAL SCALE SQ SCH (08:00)
[2017-06-28] MEDS ORDERED: ASA325 PO (08:43)
[2017-06-28] MEDS ORDERED: BRIL90TA PO (08:43)
[2017-06-28] MEDS ORDERED: METO25TA3 PO (08:43)
[2017-06-28] MEDS ORDERED: ATOR40TA16 PO (08:43)
--- NOTE | 2017-06-28 08:45 | HHI.DS ---
Discharge Summary Admission Date Jun 24, 2017 at 14:32 Admitting Diagnosis chest pain (1) Chest pain ICD Code: R07.9 - Chest pain, unspecified Status: Acute (2) Unstable angina ICD Code: I20.0 - Unstable angina Brief History - From Admission 71-year-old female known history of diabetes, chronic back pain who presented to the emergency department for evaluation of chest pain. Patient indicates that the pain started yesterday when she was out working in the yard. She states that she was raking leaves, cleaning up the car for and started developing pain located in the middle part of her chest that she describes a sharp/stabbing pain that is 5/10 on a pain scale that went away after a couple minutes when she sat down and rested. Whenever she exerted herself the pain would come back. Patient states that the pain radiating to her back. She has some shortness of breath. She denied any nausea, vomiting, diaphoresis, lightheadedness, dizziness. The patient did not think much of it throughout the rest of the day and then this morning at approximately 9 AM when she went to go outside to work in the yard again she bent over to pick something up and the pain came back again. She went back in the house and told her and her brought her to the hospital for evaluation. Patient has been asymptomatic since being here at the hospital. Initial workup did not indicate any acute abnormality. Patient does have high risks of both her parents from heart disease in their 70s. Patient was recommended observation of the chest pain center. CBC/BMP: 06/28/17 0508 06/28/17 0508 Significant Findings Laboratory Tests Test 06/26/17 03:15 06/27/17 05:50 06/27/17 20:13 06/28/17 05:08 Blood Urea Nitrogen 25 MG/DL (7-18) 24 MG/DL (7-18) 21 MG/DL (7-18) Random Glucose 127 MG/DL (74-106) 130 MG/DL (74-106) 138 MG/DL (74-106) Estimat Glomerular Filtration Rate 57 ML/MIN (>89) 70 ML/MIN (>89) 64 ML/MIN (>89) Total Creatine Kinase 429 U/L (26-192) Triglycerides Level 163 MG/DL (42-150) LDL Cholesterol 100 MG/DL (0-99) HDL Cholesterol 29.9 MG/DL (40.0-60.0) PE at Discharge GENERAL: This is a well-nourished, well-developed patient, in no apparent distress. CARDIOVASCULAR: Normal rate and regular rhythm without murmurs, gallops, or rubs. RESPIRATORY: Good respiratory efforts. Breath sounds equal and clear to auscultation bilaterally. GASTROINTESTINAL: Abdomen soft, non-tender, non-distended. Normal active bowel sounds MUSCULOSKELETAL: Extremities without cyanosis, or edema. NEURO: Alert & Oriented x4 to person, place, time, situation. Moves all ext x4 PSYCH: Appropriate mood and affect. Pt Condition on Discharge: Good Discharge Disposition: Discharge Home Discharge Instructions DIET: Follow Instructions for: Heart Healthy Diet Activities you can perform: Regular-No Restrictions Gretchen Whalen MD Jun 28, 2017 08:45
--- NOTE | 2017-06-28 08:45 | HHI.DCPOC ---
Discharge Care Plan Diagnosis: (1) CAD (coronary artery disease) (2) Unstable angina (3) Diabetes mellitus Goals to Promote Your Health * To prevent worsening of your condition and complications * To maintain your health at the optimal level Directions to Meet Your Goals Take your medications as prescribed Follow your dietary instruction Follow activity as directed Keep your appointments as scheduled Take your immunizations and boosters as scheduled If your symptoms worsen call your PCP, if no PCP go to Urgent Care Center or Emergency Room Smoking is Dangerous to Your Health. Avoid second hand smoke Call the 24-hour hour crisis hotline for domestic abuse at Gretchen Whalen MD Jun 28, 2017 08:44
[2017-06-28] MEDS: SODIUM CHLORIDE 0.9% FLUSH 10 ML FLUSH IV FLUSH SCH (09:00)
[2017-06-28] MEDS ORDERED: ASPIRIN 325 MG TAB PO SCH (09:00)
[2017-06-28] MEDS ORDERED: ATORVASTATIN 40 MG TAB PO SCH (09:00)
[2017-06-28] MEDS: TICAGRELOR 90 MG TAB PO SCH (09:38)
[2017-06-28] MEDS: METOPROLOL TARTRATE 25 MG TAB PO SCH (09:38)
[2017-06-28] MEDS ORDERED: ASPIRIN 81 MG CHEW TAB PO SCH (10:15)
--- NOTE | 2017-06-28 16:04 | EKG ---
Date Performed: 06/28/2017 Time Performed: 04:17:52 PTAGE: 71 years EKG: Sinus rhythm Left axis deviation PREVIOUS TRACING : 06/24/2017 14.07 Since the previous tracing, no significant change not ed DOCTOR: Ziyad Mendoza Interpretating Date/Time 06/28/2017 16:38:07
== END 2017-06-28 12:34 | disposition home or self-care (01) | DRG 247 ==
LOC: PHED 07:53 → PHEDA 11:02 → PH3A 11:56 → OBSVTOIN 14:32 → HCIS 18:53
PROVIDERS: ADMIT Family Medicine; ATTEND Family Medicine
PROC: X2C0361 Extirpation of Matter from Coronary Artery, One Artery using Orbital Atherectomy Technology, Percutaneous Approach, New Technology Group 1 (ICD-10-PCS; principal; 2017-06-27)
PROC: 4A023N7 Measurement of Cardiac Sampling and Pressure, Left Heart, Percutaneous Approach (ICD-10-PCS; 2017-06-27)
PROC: 027035Z Dilation of Coronary Artery, One Artery with Two Drug-eluting Intraluminal Devices, Percutaneous Approach (ICD-10-PCS; 2017-06-27)
PROC: B2111ZZ Fluoroscopy of Multiple Coronary Arteries using Low Osmolar Contrast (ICD-10-PCS; 2017-06-27)
DX: I25.110 Atherosclerotic heart disease of native coronary artery with unstable angina pectoris (principal); N17.9 Acute kidney failure, unspecified; N18.3 Chronic kidney disease, stage 3 (moderate); E11.22 Type 2 diabetes mellitus with diabetic chronic kidney disease; I12.9 Hypertensive chronic kidney disease with stage 1 through stage 4 chronic kidney disease, or unspecified chronic kidney disease; F32.9 Major depressive disorder, single episode, unspecified; F41.9 Anxiety disorder, unspecified; K21.9 Gastro-esophageal reflux disease without esophagitis; G89.29 Other chronic pain; M54.5 Low back pain; J45.909 Unspecified asthma, uncomplicated; Z82.49 Family history of ischemic heart disease and other diseases of the circulatory system; Z79.4 Long term (current) use of insulin; Z87.891 Personal history of nicotine dependence
CPT/HCPCS: 33210; 71045; 78452; 80048; 80061; 82550; 82552; 82947; 82948; 84450; 84460; 84484; 85002; 85025; 85730; 92933; 93005; 93017; 93458; 99152; 99153; A9502; C1714; C1725; C1760; C1769; C1874; C1887; C1893; G0269; J1644; J1815; J2250; J2405; J2785; J3010; J3480; Q9967